=== PATIENT | female | born 1970 | race Caucasian/White ===

== ENCOUNTER 2016-12-21 14:04 | Inpatient (IN) ==
[2016-12-21] MEDS ORDERED: SODIUM CHLORIDE 0.9% 1,000 ML IV STA (14:39)
[2016-12-21] MEDS ORDERED: ONDANSETRON 4 MG/2 ML VIAL IV STA (14:39)
[2016-12-21] MEDS ORDERED: ONDANSETRON 4 MG/2 ML VIAL ONE (14:42)
--- NOTE | 2016-12-21 15:22 | XRay Report ---
XR chest 2V Date: 12/21/2016 2:38 PM History: Cough Comparison: None Technique: PA and lateral chest Findings: The heart is normal in size. Rounded consolidation noted in the right lower lobe with additional minimal infiltration in the right upper lobe. Unremarkable mediastinum and osseous structures. Impression: Right lower lobe and right upper lobe pneumonia. Followup films are recommended to document clearing and exclude additional underlying pathology in the right lower lobe. PROCEDURE INTERPRETED AT [facility] DEPARTMENT OF RADIOLOGY Final Report Signed by: Dr. Adelia Torrez
[2016-12-21 15:26] LABS: Basophils % 0.2 % (0.0-0.8); Eosinophils # 0.1 10*3/uL (0.0-0.87); Eosinophils % 0.7 % (0.00-10.9); Hematocrit 27.5 VOL% (35.7-47.0); Hemoglobin 8.5 GM/DL (12.0-16.0); Immature Granulocytes % 0.7 %; Immature Granulocytes Absolute 0.06 #; Lymphocytes % 23.7 % (21.3-54.2); Mean Corpuscular HGB Conc 30.9 GM/DL (32-36); Mean Corpuscular Hemoglobin 29 PG (27-34); Mean Corpuscular Volume 92.3 FL (87-102); Mean Platelet Volume 9.6 FL (9.6-12.0); Monocytes # 0.6 10*3/uL (0.11-0.8); Monocytes % 6.7 % (1.7-12.7); Neutrophils # 5.7 10*3/uL (1.4-7.4); Platelet Count 376 T/CUMM (130-400); Red Blood Count 2.98 MC/CUMM (3.8-5.5); Red Cell Distribution Width 14.2 % (9.3-17.3); White Blood Count 8.4 T/CUMM (4-12)
[2016-12-21] MEDS ORDERED: cefTRIAXone 1,000 MG in SODIUM CHLORIDE 0.9% 100 ML IV STA (15:36)
[2016-12-21] MEDS ORDERED: AZITHROMYCIN INJ 500 MG in SODIUM CHLORIDE 0.9% 250 ML IV STA (15:37)
[2016-12-21 15:45] LABS: Alanine Aminotransferase 15 U/L (13-56); Albumin 2.7 G/DL (3.4-5.0); Alkaline Phosphatase 106 U/L (45-117); Aspartate Amino Transferase 12 U/L (0-37); Bilirubin,Total < 0.39 MG/DL (0.2-1.0); Blood Urea Nitrogen 32 MG/DL (7-18); Calcium 8.7 MG/DL (8.5-10.1); Glucose 121 MG/DL (74-106); Osmolality,Calculated 293.8 MOS/KG (273-304); Potassium 3.9 MMOL/L (3.5-5.1); Sodium 144 MMOL/L (136-145); Total Protein 8.2 G/DL (6.4-8.3)
[2016-12-21] MEDS ORDERED: AZITHROMYCIN 500 MG VIAL IV ONE (15:57)
[2016-12-21] MEDS ORDERED: cefTRIAXone 1,000 MG VIAL ONE (15:57)
--- NOTE | 2016-12-21 16:12 | Emergency Department Note ---
Jean Paul Pereira Brittany, am scribing for, and in the presence of, Marco Narayan Jr., MD 14:42. Sylvain Pereira Marvin Jr., MD, personally performed the services described in this documentation, ascribed by Stacey Reaves in my presence, and it is both accurate and complete 612 . Arrival - Arrival Chief Complaint: Upper Respiratory Stated Complaint: pneumonia,diarrhea,low h/h ED Nursing Triage Note: States that she was dx with [facility] C/o N/V/D and generalized weakness. Was also sent for evaluation of low H&H. Mode of Arrival: Wheelchair Limitations: No Limitations Source: Patient, RN Notes Reviewed - History of Present Illness HPI Narrative: Patient is a 46 y/o white female presenting to the ED with c/o nausea, vomiting , diarrhea with an onset of a few days. Patient reports that she was seen at [facility] on and was diagnosed with Pneumonia per [employer] Kush and was given an IM shot of Rocephin and put on Levaquin. Patient returned to [facility] today and had labs drawn and was informed that she had a low Hbg and Hct and was instructed by [employer] to come here to the ED. Patient states that for the past few days she has not been able to tolerate any PO intake, including medications. Patient reports also having some night sweats, having to change clothes about two times throughout the night. She notes also having a productive cough with yellow/green phlegm. Patient states that today she has not had any of her medications, noting that last medication taken was Neurontin last night. She reports that this is her fourth time within the past year having Pneumonia. Patient notes a family history of [place] and Lung CA. Patient denies use of tobacco. Patient has no other complaint/pain in the ED. Date of Last Menstrual Period: 11/22/16 Allergies/Adverse Reactions: Allergies Allergy/AdvReac Type Severity Reaction Status Date / Time Amoxicillin AdvReac Unknown/Unable Verified 12/21/16 14:14 to obtain sulfamethoxazole AdvReac Vomiting Verified 12/21/16 14:14 [From Bactrim] trimethoprim [From Bactrim] AdvReac Vomiting Verified 12/21/16 14:14 Home Medications: Home Medications Medication Instructions Recorded Confirmed Type Duloxetine HCl [Duloxetine] 60 mg PO DAILY 12/21/16 12/21/16 History Enalapril Maleate 20 mg PO DAILY 12/21/16 12/21/16 History Gabapentin 300 mg PO TID 12/21/16 12/21/16 History Levofloxacin Tab [Levaquin Tab] 750 mg PO DAILY 12/21/16 12/21/16 History Magnesium Chloride [Mag Delay] 64 mg PO DAILY 12/21/16 12/21/16 History Metformin HCl 1,000 mg PO QAM 12/21/16 12/21/16 History Metformin HCl 500 mg PO QPM 12/21/16 12/21/16 History Norgestimate-Ethinyl Estradiol 1 each PO DAILY 12/21/16 12/21/16 History [Sprintec 28 Day Tablet] Pioglitazone HCl 15 mg PO DAILY 12/21/16 12/21/16 History hydroCHLOROthiazide 12.5 mg PO DAILY 12/21/16 12/21/16 History [Hydrochlorothiazide] methylPREDNISolone DOSEPAK [Medrol 4 mg PO DAILY 12/21/16 12/21/16 History Dosepak] traMADol TAB [Ultram] 50 mg PO Q6H PRN 12/21/16 12/21/16 History Review of System - Review of System 12 point system: reviewed and no additional remarkable complaints except as stated - Review of System Constitutional: Present: night sweats Respiratory: Present: cough Gastrointestinal: Present: nausea, vomiting, diarrhea Medical,Surgical,& Family Hx - Medical History Cardio: History of: Hypertension Neurology: History of: Peripheral Neuropathy Endocrine: History of: Diabetes Mellitus (NIDDM), Dyslipidemia - Social History Smoking Status: Never smoker Frequency of Alcohol Use: None Type of Drug Use: None Exam Physical Examination: General: Well-developed well-nourished, no apparent distress. Head: Normocephalic, atraumatic. Eyes: PERRLA, EOMI. Nose: No obvious acute deformities or discharge. Mouth: No obvious acute injury. Mucous membranes may be a little bit moist Neck: Full range of motion without obvious pain. No midline tender to palpation. Lymphatic: no significant lymphadenopathy noted. Lungs: Clear to auscultation bilaterally, normal and equal air movement bilaterally, no obvious rales or wheezing. No respiratory distress Heart: regular rate and rhythm, no obvious mummers. Abdomen: Soft nontender, nondistended, normal active bowel sounds. Very benign exam Skin: No obivous acute lesions noted Musculoskeletal: No gross deformities. Neurological: No focal findings, cranial nerves II through XII grossly normal. Psychiatric: Appropriate mood.. : Deferred Vital Signs: Vital Signs Temperature 98.2 F 12/21/16 14:21 Pulse Rate 95 H 12/21/16 14:21 Respiratory Rate 20 12/21/16 14:21 Blood Pressure 166/78 12/21/16 14:21 O2 Sat by Pulse Oximetry 100 12/21/16 14:09 Course Course Narrative: Differential diagnosis: Pneumonia, upper respiratory infection, bronchitis, patient says she is anemic - Reevaluation(s) Reevaluation #1: Discussed with hospitalist who will come to the ER and admit this patient. Time: 16:10 Results - Labs CBC & BMP: 12/21/16 14:56 12/21/16 14:56 Lab Results: I have reviewed the patients labs Labs: Laboratory Tests 12/21/16 14:56 WBC 8.4 RBC 2.98 L Hgb 8.5 L Hct 27.5 L MCV 92.3 MCH 29 MCHC 30.9 L RDW 14.2 Plt Count 376 MPV 9.6 Neut % (Auto) 68.0 Lymph % (Auto) 23.7 [place] % (Auto) 6.7 Eos % (Auto) 0.7 Baso % (Auto) 0.2 Neut # (Auto) 5.7 Lymph # (Auto) 2.0 [place] # (Auto) 0.6 Eos # (Auto) 0.1 Baso # (Auto) 0.0 Immature Gran % 0.7 Nucleated RBC % 0.0 Immature Gran # 0.06 Nucleated RBCs # 0.00 Laboratory Tests 12/21/16 14:56 Sodium 144 Potassium 3.9 Chloride 107 Carbon Dioxide 20 L Anion Gap 20.9 H BUN 32 H Creatinine 3.00 H GFR Calculation 15 BUN/Creatinine Ratio 10.00 Glucose 121 H Calculated Osmolality 293.8 Calcium 8.7 Total Bilirubin < 0.39 AST 12 ALT 15 Alkaline Phosphatase 106 Total Protein 8.2 Albumin 2.7 L Globulin 5.5 H Albumin/Globulin Ratio 0.4 L - Diagnostic Findings Procedure: Chest x-ray: report reviewed by me, image reviewed by me (Right lower lobe and right upper lobe pneumonia. Followup films are recommended to document clearing and exlcude additional underlying pathology in the right lower lobe. I personally reviewed this x-ray and agree) Disposition Clinical Impression: Pneumonia, Failure of outpatient treatment, Renal insufficiency, Vomiting, Mild anemia, Diabetes, Hypertension, Peripheral neuropathy, Elevated blood pressure reading Case discussed with: patient Disposition: Still a Patient Condition: Stable Time of Disposition: 16:12
--- NOTE | 2016-12-21 16:58 | Hospitalist History & Physical ---
Assessment and Plan (1) Acute renal failure Status: Acute Assessment and plan: Renal ultrasound aggressive hydration with half-normal saline monitor BMP hold diuretics and luisa Current Visit: Yes (2) Pneumonia Status: Acute Assessment and plan: Rocephin and azithromycin, chest CT to ensure this is pneumonia and not pulmonary mass Current Visit: Yes (3) Diabetes Status: Acute Assessment and plan: Insulin sliding scale hold metformin Current Visit: Yes (4) Hypertension Status: Acute Assessment and plan: Hold LUISA and arb start Coreg 3.125 Current Visit: Yes (5) Peripheral neuropathy Status: Acute Assessment and plan: Continue gabapentin and tramadol Current Visit: Yes History of Present Illness Chief complaint: n/v/d/sob History of present illness: Ms. Pozo is a 46 year old female who is a patient of Dr. Panfilo Gardner's with c /o nausea, vomiting, diarrhea beginning yesterday. Patient has very pressured speech. She reports having pneumonia 4 times. She [facility] on and was diagnosed with Pneumonia and given an IM shot of Rocephin and put on Levaquin. Patient returned to [facility] today because of the nausea vomiting diarrhea. Instructed by B[employer]KE TE[employer] to come here to the ED. Patient states that for the past few days she has not been able to tolerate any PO intake, including medications. She complains of sweating through her clothes at night Home Medications Medication Instructions Recorded Confirmed Type Duloxetine HCl [Duloxetine] 60 mg PO DAILY 12/21/16 12/21/16 History Enalapril Maleate 20 mg PO DAILY 12/21/16 12/21/16 History Gabapentin 300 mg PO TID 12/21/16 12/21/16 History Levofloxacin Tab [Levaquin Tab] 750 mg PO DAILY 12/21/16 12/21/16 History Magnesium Chloride [Mag Delay] 64 mg PO DAILY 12/21/16 12/21/16 History Metformin HCl 1,000 mg PO QAM 12/21/16 12/21/16 History Metformin HCl 500 mg PO QPM 12/21/16 12/21/16 History Norgestimate-Ethinyl Estradiol 1 each PO DAILY 12/21/16 12/21/16 History [Sprintec 28 Day Tablet] Pioglitazone HCl 15 mg PO DAILY 12/21/16 12/21/16 History hydroCHLOROthiazide 12.5 mg PO DAILY 12/21/16 12/21/16 History [Hydrochlorothiazide] methylPREDNISolone DOSEPAK [Medrol 4 mg PO DAILY 12/21/16 12/21/16 History Dosepak] traMADol TAB [Ultram] 50 mg PO Q6H PRN 12/21/16 12/21/16 History Allergies Allergy/AdvReac Type Severity Reaction Status Date / Time Amoxicillin AdvReac Unknown/Unable Verified 12/21/16 14:14 to obtain sulfamethoxazole AdvReac Vomiting Verified 12/21/16 14:14 [From Bactrim] trimethoprim [From Bactrim] AdvReac Vomiting Verified 12/21/16 14:14 Medical,Surgical,& Family Hx - Medical History Cardio: History of: Hypertension Neurology: History of: Peripheral Neuropathy Endocrine: History of: Diabetes Mellitus (NIDDM), Dyslipidemia Respiratory: History of: Respiratory Problems (Reoccurring pneumonia) No history of: COPD Hematology: History of: Anemia - Surgical History Reproductive Surgeries: Surgical HX of;: Section, Gynecologic Surgery ( Cryo) - Family History Family History: Reports;: Family Heart Disease - Social History Smoking Status: Never smoker Frequency of Alcohol Use: None Type of Drug Use: None Marital Status: Lives With:: Spouse Functional capacity: independent ambulation - Constitutional Constitutional: Present: fatigue, fever(s). Absent: headache(s) - EENT Eyes: Absent: blurry vision, diplopia Ears: Absent: decreased hearing, ear discharge Nose, mouth and throat: Present: sore throat. Absent: headache(s) - Cardiovascular Cardiovascular: Present: chest pain at rest, dyspnea. Absent: edema - Respiratory Respiratory: Present: dyspnea, dyspnea on exertion, change in phlegm color - Gastrointestinal Gastrointestinal: Present: diarrhea, nausea, vomiting - Genitourinary Genitourinary: Absent: difficulty urinating, dysuria - Neurological Neurological: Absent: headache(s), syncope - Psychiatric Psychiatric: Present: anxiety, depression - Endocrine Endocrine: Present: cold intolerance, fatigue. Absent: heat intolerance - Hematologic/Lymphatic Hematologic/Lymphatic: Absent: easy bleeding, easy bruising Exam - Constitutional Vitals: Period Temp Pulse Resp BP Sys/Chase Pulse Ox Last 24 Hr 98.2 F-98.2 F 95-95 20-20 166-166/78-78 100 General appearance: normal weight, no acute distress - Head Head exam: Present: normal inspection, normocephalic - Eye Eye exam: Present: EOMI. Absent: scleral icterus Pupils: Present: CORA, normal accommodation - ENT ENT exam: Present: normal exam, normal external ear exam - Neck Neck exam: Present: lymphadenopathy. Absent: thyromegaly - Respiratory Respiratory exam: Present: clear to auscultation bilaterally. Absent: rhonchi, wheezes - Cardiovascular Cardiovascular exam: Present: regular rate and rhythm. Absent: systolic murmur - GI/Abdominal GI/Abdominal exam: Present: normal bowel sounds, soft. Absent: tenderness - Extremities Exam Extremities exam: Present: normal inspection, normal capillary refill - Neurological Exam Neurological exam: Present: alert, oriented X3, CN II-XII intact, reflexes normal. Absent: motor sensory deficit - Psychiatric Psychiatric exam: Present: normal affect, normal mood - Skin Skin exam: Present: normal color, warm Results - Labs CBC & BMP: 12/21/16 14:56 12/21/16 14:56 Lab Results: I have reviewed the past 24 hour labs - Diagnostic Findings Procedure: Chest x-ray: image reviewed by me (Right upper lobe and right lower lobe pneumonia)
[2016-12-21 17:27] LABS: % Iron Saturation 7.7 % (18-50); Ferritin 48.4 ng/ml (8-252)
--- NOTE | 2016-12-21 17:40 | CT Report ---
Exam: CT chest wo con Date: 12/21/2016 4:55 PM Comparison: Chest x-ray 12/21/2016 Indication: Cough, pneumonia, evaluate for mass Technique: Sequential axial scans of the chest were obtained without contrast. Coronal and sagittal 2-D reconstructions were obtained. Total DLP: 207.30 Findings: The heart is normal in size with small cardiac fat pads. Calcified nodes are identified. Limited evaluation of the nodes and vasculature without contrast. No acute findings in the visualized upper abdomen. Minimal degenerative changes are noted. Diffuse parenchymal findings extending from the right hilum to the pleural surface in the right lower lobe with 90 mm area of involvement. Similar 50 mm finding in the right upper lobe. No pleural effusion. Impression: Right lower lobe and right upper lobe pneumonia. Associated atelectasis. Followup is recommended to document clearing and exclude additional underlying pathology especially in the right lower lobe. PROCEDURE INTERPRETED AT [facility] DEPARTMENT OF RADIOLOGY Final Report Signed by: Dr. Adelia Torrez
[2016-12-21] MEDS ORDERED: ACETAMINOPHEN 325 MG TABLET PO PRN (18:08)
[2016-12-21] MEDS ORDERED: ONDANSETRON 4 MG/2 ML VIAL IV PRN (18:08)
[2016-12-21] MEDS ORDERED: traMADol 50 MG TABLET PO PRN (18:08)
[2016-12-21] MEDS ORDERED: GLUCAGON 1 MG VIAL IM PRN (18:08)
[2016-12-21] MEDS ORDERED: AZITHROMYCIN INJ 500 MG in SODIUM CHLORIDE 0.9% 250 ML IV SCH (18:08)
[2016-12-21] MEDS ORDERED: LACTULOSE 20 GM/30 ML UDCUP PO PRN (18:08)
[2016-12-21] MEDS ORDERED: DEXTROSE 50% 25 GM/50 ML VIAL IV PRN (18:08)
[2016-12-21] MEDS ORDERED: ZALEPLON 5 MG CAPSULE PO PRN (18:08)
[2016-12-21 18:24] LABS: Apearance,Urine CLEAR (Clear); Bilirubin,Urine Negative (Negative); Blood, Urine Negative (Negative); Glucose,Urine (UA) Negative (Negative); Ketones,Urine Negative (Negative); Nitrite,Urine Negative (Negative); Protein,Urine 100 MG/DL; RBC,Urine 1 /HPF (0-4); Squamous Epithelial Cell,Urine Occasional /HPF (0-10); Urine Color Straw (Yellow); Urine Specific Gravity 1.012 (1.001-1.035); Urine Urobilinogen < 2.0 EU/DL (0.2-1.0); WBC,Urine <1 /HPF (0-6)
[2016-12-21] MEDS ORDERED: ENOXAPARIN 30 MG/0.3 ML SYRINGE SUBCUT SCH (18:30)
[2016-12-21] MEDS ORDERED: cefTRIAXone 1,000 MG in SODIUM CHLORIDE 0.9% 100 ML IV SCH (18:30)
[2016-12-21 18:38] LABS: Free T4 (Free Thyroxine) 1.14 NG/DL (0.76-1.46); Thyroid Stimulating Hormone 5.16 uIU/ml (0.358-3.74)
--- NOTE | 2016-12-21 19:30 | Ultrasound Report ---
Exam: US renal Bilateral Date: 12/21/2016 6:08 PM Comparison: None Indication: Acute renal failure Technique: Multiple transabdominal real-time scans were obtained of the kidneys. Ultrasound images were captured and stored. Findings: Right kidney measures 108 x 41 x 39 mm. Left kidney measures 94 x 47 x 41 mm. No mass or hydronephrosis. Inhomogeneous echogenicity in the kidneys. Impression: The kidneys are fairly symmetric in size with no masses or hydronephrosis. Minimally inhomogeneous echogenicity which can be seen with medical renal disease. Minimal elongation of the right lobe of the liver. PROCEDURE INTERPRETED AT [facility] DEPARTMENT OF RADIOLOGY Final Report Signed by: Dr. Adelia Torrez
[2016-12-21] MEDS: ALBUTEROL 2.5 MG/3 ML NEB RESP TX SCH (19:32)
[2016-12-21] MEDS: PANTOPRAZOLE 40 MG TABLET PO SCH (22:06)
[2016-12-21] MEDS: GABAPENTIN 300 MG CAPSULE PO SCH (22:06)
[2016-12-21] MEDS: CARVEDILOL 3.125 MG TABLET PO SCH (22:07)
[2016-12-21] MEDS: SODIUM CHLORIDE 0.45% 1,000 ML IV SCH (22:08)
[2016-12-21] MEDS: INSULIN LISPRO 100 UNIT/ML SUBCUT SCH (22:10)
[2016-12-22] MEDS: ALBUTEROL 2.5 MG/3 ML NEB RESP TX SCH ×4 (00:17→19:54)
[2016-12-22 04:02] LABS: Basophils % 0.3 % (0.0-0.8); Eosinophils # 0.1 10*3/uL (0.0-0.87); Eosinophils % 0.7 % (0.00-10.9); Hematocrit 22.3 VOL% (35.7-47.0); Hemoglobin 6.8 GM/DL (12.0-16.0); Immature Granulocytes % 0.6 %; Immature Granulocytes Absolute 0.04 #; Lymphocytes # 1.9 10*3/uL (1.4-4.0); Lymphocytes % 26.6 % (21.3-54.2); Mean Corpuscular HGB Conc 30.5 GM/DL (32-36); Mean Corpuscular Hemoglobin 28 PG (27-34); Mean Corpuscular Volume 92.9 FL (87-102); Mean Platelet Volume 9.6 FL (9.6-12.0); Monocytes # 0.6 10*3/uL (0.11-0.8); Monocytes % 8.3 % (1.7-12.7); Neutrophils # 4.4 10*3/uL (1.4-7.4); Neutrophils % 63.5 % (38.7-73.9); Platelet Count 286 T/CUMM (130-400)
[2016-12-22 04:24] LABS: Calcium 7.5 MG/DL (8.5-10.1); Osmolality,Calculated 294.7 MOS/KG (273-304); Potassium 4.2 MMOL/L (3.5-5.1)
[2016-12-22] MEDS: SODIUM CHLORIDE 0.45% 1,000 ML IV SCH ×3 (06:29→21:58)
[2016-12-22] MEDS ORDERED: FUROSEMIDE 20 MG/2 ML VIAL IV ONE (07:32)
[2016-12-22] MEDS ORDERED: SODIUM CHLORIDE 0.9% 250 ML IV PRN (09:05)
[2016-12-22] MEDS: GABAPENTIN 300 MG CAPSULE PO SCH ×3 (09:51→21:54)
[2016-12-22] MEDS: DULoxetine 30 MG CAPSULE PO SCH (09:51)
[2016-12-22] MEDS: PANTOPRAZOLE 40 MG TABLET PO SCH ×2 (09:51→21:54)
[2016-12-22] MEDS: MAGNESIUM CHLORIDE 64 MG TABLET PO SCH (09:51)
[2016-12-22] MEDS: CARVEDILOL 3.125 MG TABLET PO SCH (09:51)
[2016-12-22] MEDS: INSULIN LISPRO 100 UNIT/ML SUBCUT SCH ×4 (09:52→21:55)
--- NOTE | 2016-12-22 11:03 | Nephrology Consult Note ---
History of Present Illness Chief complaint: renal failure History of present illness: Ms. Pozo is a 46 year old female admitted with right sided pneumonia. She was treated at the [facility] with by mouth Levaquin . She developed nausea vomiting and diarrhea and returned to the ER. She is noted to have renal insufficiency. She denies dysuria hematuria or flank pain. She does not know her baseline renal function Home Medications Medication Instructions Recorded Confirmed Type Duloxetine HCl [Duloxetine] 60 mg PO DAILY 12/21/16 12/21/16 History Enalapril Maleate 20 mg PO DAILY 12/21/16 12/21/16 History Gabapentin 300 mg PO TID 12/21/16 12/21/16 History Levofloxacin Tab [Levaquin Tab] 750 mg PO DAILY 12/21/16 12/21/16 History Magnesium Chloride [Mag Delay] 64 mg PO DAILY 12/21/16 12/21/16 History Metformin HCl 1,000 mg PO QAM 12/21/16 12/21/16 History Metformin HCl 500 mg PO QPM 12/21/16 12/21/16 History Norgestimate-Ethinyl Estradiol 1 each PO DAILY 12/21/16 12/21/16 History [Sprintec 28 Day Tablet] Pioglitazone HCl 15 mg PO DAILY 12/21/16 12/21/16 History hydroCHLOROthiazide 12.5 mg PO DAILY 12/21/16 12/21/16 History [Hydrochlorothiazide] methylPREDNISolone DOSEPAK [Medrol 4 mg PO DAILY 12/21/16 12/21/16 History Dosepak] traMADol TAB [Ultram] 50 mg PO Q6H PRN 12/21/16 12/21/16 History Allergies Allergy/AdvReac Type Severity Reaction Status Date / Time Amoxicillin AdvReac Unknown/Unable Verified 12/21/16 14:14 to obtain sulfamethoxazole AdvReac Vomiting Verified 12/21/16 14:14 [From Bactrim] trimethoprim [From Bactrim] AdvReac Vomiting Verified 12/21/16 14:14 Medical,Surgical,& Family Hx - Medical History Cardio: History of: Hypertension Neurology: History of: Peripheral Neuropathy Endocrine: History of: Diabetes Mellitus (NIDDM), Dyslipidemia Respiratory: History of: Respiratory Problems (Reoccurring pneumonia) No history of: COPD Hematology: History of: Anemia - Surgical History Reproductive Surgeries: Surgical HX of;: Section, Gynecologic Surgery ( Cryo) - Family History Family History: Reports;: Family Heart Disease - Social History Smoking Status: Never smoker Frequency of Alcohol Use: None Type of Drug Use: None Review of Systems 12 point system: reviewed and no additional remarkable complaints except as stated Exam - Vital Signs Vital signs: Period Temp Pulse Resp BP Sys/Chase Pulse Ox Last 24 Hr 97.9 F-98.3 F 74-103 15-25 114-163/66-91 98-100 Exam: Gen.: Alert and oriented x3. ENT: Pupils equal round reactive to light. EOMs intact. Mucous membranes moist. Neck: Supple. No JVD or bruit. Cardiovascular: Regular rate and rhythm. No murmur rub or gallop Lungs: Clear Abdomen: Soft. Nontender. Positive bowel sounds. No organomegaly Extremities: No edema Results - Labs CBC & BMP: 12/22/16 03:14 12/22/16 03:14 Assessment and Plan (1) Acute renal failure Status: Acute Assessment and plan: 46-year-old woman admitted with: * Acute renal insufficiency. Baseline renal function is not known. She is followed by Dr. Gardner. She is clinically volume depleted. Renal function has improved with IV fluid. Agree with holding metformin and LUISA inhibitor * Pneumonia, right upper lobe and right lower lobe * Diabetes mellitus * Hypertension Current Visit: Yes (2) Diabetes Status: Acute Current Visit: Yes (3) Hypertension Status: Acute Current Visit: Yes (4) Peripheral neuropathy Status: Acute Current Visit: Yes (5) Pneumonia Status: Acute Current Visit: Yes
--- NOTE | 2016-12-22 11:20 | Gastrointestinal Consult Note ---
Assessment and Plan - Time spent with patient Time spent with patient: Greater than 30 minutes (1) Anemia Status: Acute Current Visit: Yes (2) Other specified counseling Status: Acute Current Visit: Yes History of Present Illness History of present illness: Ms. Pozo is a 46 year old female Home Medications Medication Instructions Recorded Confirmed Type Duloxetine HCl [Duloxetine] 60 mg PO DAILY 12/21/16 12/21/16 History Enalapril Maleate 20 mg PO DAILY 12/21/16 12/21/16 History Gabapentin 300 mg PO TID 12/21/16 12/21/16 History Levofloxacin Tab [Levaquin Tab] 750 mg PO DAILY 12/21/16 12/21/16 History Magnesium Chloride [Mag Delay] 64 mg PO DAILY 12/21/16 12/21/16 History Metformin HCl 1,000 mg PO QAM 12/21/16 12/21/16 History Metformin HCl 500 mg PO QPM 12/21/16 12/21/16 History Norgestimate-Ethinyl Estradiol 1 each PO DAILY 12/21/16 12/21/16 History [Sprintec 28 Day Tablet] Pioglitazone HCl 15 mg PO DAILY 12/21/16 12/21/16 History hydroCHLOROthiazide 12.5 mg PO DAILY 12/21/16 12/21/16 History [Hydrochlorothiazide] methylPREDNISolone DOSEPAK [Medrol 4 mg PO DAILY 12/21/16 12/21/16 History Dosepak] traMADol TAB [Ultram] 50 mg PO Q6H PRN 12/21/16 12/21/16 History Allergies Allergy/AdvReac Type Severity Reaction Status Date / Time Amoxicillin AdvReac Unknown/Unable Verified 12/21/16 14:14 to obtain sulfamethoxazole AdvReac Vomiting Verified 12/21/16 14:14 [From Bactrim] trimethoprim [From Bactrim] AdvReac Vomiting Verified 12/21/16 14:14 Medical,Surgical,& Family Hx - Medical History Cardio: History of: Hypertension Neurology: History of: Peripheral Neuropathy Endocrine: History of: Diabetes Mellitus (NIDDM), Dyslipidemia Respiratory: History of: Respiratory Problems (Reoccurring pneumonia) No history of: COPD Hematology: History of: Anemia - Surgical History Reproductive Surgeries: Surgical HX of;: Section, Gynecologic Surgery ( Cryo) - Family History Family History: Reports;: Family Heart Disease - Social History Smoking Status: Never smoker Frequency of Alcohol Use: None Type of Drug Use: None Exam - Constitutional Vitals: Period Temp Pulse Resp BP Sys/Chase Pulse Ox Last 24 Hr 97.9 F-98.3 F 74-103 15-25 114-163/66-91 98-100 Results - Labs CBC & BMP: 12/22/16 03:14 12/22/16 03:14 Note Addendum: PLEASE NOTE -- automatic citation of patient information is unavoidable in this electronic note. I have made a reasonable effort to review the information cited , but it is not a part of my evaluation, impression, or recommendation unless specifically discussed in the dictated text that follows. As well, voice recognition software was used in the creation of this clinical note. Reasonable effort was made to identify and correct gross errors. Despite proofreading, errors in kerrick kleaner operator may be present, including nonsense verbiage at times. If you encounter such an error, please contact me at [phone] for discussion and correction. -- Roxanna Chief complaint: anemia History of present illness: this is a new patient, a 46-year-old female seen by consultation for evaluation of anemia with persistently declining blood counts. Patient is admitted to the hospitalist service under the care of Dr. Vidal with a primary diagnosis of pneumonia and acute renal failure. Since her admission, she has demonstrated a precipitous drop in her blood counts with most recent hemoglobin measurement less than 7 g/dL. She reports no overt gastrointestinal bleeding, indeed no gastrointestinal symptoms whatsoever. Prior to her admission she was eating and drinking normally, maintaining her nutrition and hydration, and maintaining a normal baseline bowel pattern. She is unaware of any past history of gastrointestinal bleeding. She is unaware of any past history of peptic ulcer disease. She is unaware of any history of liver disease. She is comfortable at present and tolerating a clear liquid diet. She has not had any bowel movement since her admission to the hospital. Patient denies fever, chills, night sweats, rigors, headache, dizziness, neck pain, visual changes, redness of the eyes, dysphagia, odynophagia, difficulty chewing, chest pain, abdominal pain, weight loss, regurgitation, hematemesis, diarrhea, hematochezia, melena, proctalgia, constipation, change in bowel pattern generally, dysuria, skin changes, temperature regulation issues, flushing, easy bleeding/bruising, musculoskeletal pain, mental status change, numbness/weakness in the extremities, yellowing of the eyes/skin, cutaneous eruptions, allergies to food or drug, family history of gastrointestinal cancer and colon polyps, and other complaints in general. Review of systems: 12 point review of systems was negative except as documented above. Outpatient medications: duloxetine, enalapril, gabapentin, levofloxacin, magnesium chloride, metformin, piaglitizone, hydrochlorothiazide, methylprednisolone, tramadol Inpatient medications: Tylenol, albuterol, azithromycin, Coreg, ceftriaxone, Cymbalta, Neurontin, [place], insulin, lactulose, magnesium chloride, Zofran, Protonix, 1/2NS infusion, ultram, [place] Past Medical History: hypertension, peripheral neuropathy, diabetes, chronic kidney disease, dyslipidemia, pneumonia, anemia Social history: negative tobacco. Negative alcohol Family history: no gastrointestinal cancers Physical examination: Vital Signs: Current vital signs reviewed and documented above. General Appearance: well-appearing. Not acutely ill. Head: Normocephalic. Neck: Palpation of the neck revealed no abnormalities. Eyes: No scleral icterus. No scleral injection. No conjunctival pallor. Oral Cavity: Odor of breath was normal. No drooling was observed. Lips showed no abnormalities. Floor of the mouth showed no abnormalities. Pharynx: Oropharynx was normal. Lungs: Respiration rhythm and depth was normal. Cardiovascular: Heart rate and rhythm were normal. No murmurs were appreciated. Abdomen: abdomen was not distended. Abdominal palpation revealed no tenderness and no hepatosplenomegaly. Ascites was not discovered. Abdominal auscultation revealed positive bowel sounds. Musculoskeletal System: Musculoskeletal system was grossly normal. Neurological: level of consciousness was normal. Speech was normal. Skin: General appearance was normal. Color and pigmentation were normal. No skin lesions. Laboratory: white blood count simply zero, hemoglobin 6.8, hematocrit 22.3, platelets 286, ESR 125, ALT 15, AST 12, 1348, total bilirubin 0.4, alkaline phosphatase 106, albumin 2.7, total protein 8.2 Radiology: CT of the chest from yesterday revealed both right upper lobe and right lower lobe pneumonia. Impressions: 1. Anemia -- the patient has not demonstrated overt gastrointestinal bleeding. It would be uncommon for blood counts to drop to this extent without overt blood in the stool or vomiting of blood. Nonetheless, the patient has not had endoscopic evaluation in the past and it is reasonable to pursue both upper and lower endoscopy to rule out gastrointestinal loss. We will plan upper endoscopy tomorrow followed by colonoscopy on Friday if there is no finding. In the interim, I recommend continued proton pump inhibitor, aggressive volume management, and serial monitoring of blood counts with transfusion as indicated. If no finding in the G.I. tract, we should further pursue the possibility of both non-G.I. blood loss as well as consumptive or destructive anemia. 2. Other specified counseling: The patient was seen for greater than 30 minutes. The patient was counseled for greater than 50% of this time regarding differential diagnosis, likely diagnosis, diagnostic and therapeutic alternatives, risks/benefits/alternatives of medications and procedures, and plan of care generally. The patient expressed understanding and wishes to proceed. Recommendations: -- aggressive volume management -- serial monitoring of blood counts with transfusion as indicated -- continue proton pump inhibitor -- upper endoscopy Friday -- colonoscopy if no finding on upper endoscopy -- evaluate for evidence of consumptive or destructive anemia ends -- thank you for this consultation. Dr. Llanos will assume G.I. care for this patient tomorrow.
--- NOTE | 2016-12-22 14:56 | Hospitalist Progress Note ---
Assessment and Plan (1) Acute renal failure Status: Acute Assessment and plan: Renal ultrasound suggested just more chronic problems but has improved with aggressive hydration Current Visit: Yes (2) Pneumonia Status: Acute Assessment and plan: Continue Rocephin and azithromycin, chest CT confirms pneumonia Current Visit: Yes (3) Diabetes Status: Acute Assessment and plan: Insulin sliding scale hold starting glyburide until after her scope Current Visit: Yes (4) Hypertension Status: Acute Assessment and plan: Hold LUISA and arb increase Coreg to 6.25 Current Visit: Yes (5) Peripheral neuropathy Status: Acute Assessment and plan: Continue gabapentin and tramadol Current Visit: Yes (6) Mild anemia Status: Acute Assessment and plan: Stool for occult blood was negative, hold Lovenox and continue Protonix p.o. twice daily. Will receive 2 units packed cells today and GI feels that she will need an EGD in the morning Current Visit: Yes Hospitalist: Subjective Interval history: Patient is no longer nauseated or vomiting or having diarrhea and really wants something to eat. I will give her a soft diet for now. I will have GI see her as her hemoglobin has dropped. They will probably want her to remain on a clear liquid diet but I will let them decide. Discussed the results of her CT with her. Will stop her DVT prophylaxis Lovenox and put her on SCDs Exam - Constitutional Vitals: Period Temp Pulse Resp BP Sys/Chase Pulse Ox Last 24 Hr 97.9 F-98.3 F 20-103 15-25 114-166/66-92 96-100 Exam: Heart Rate-[RRR] Lungs-[CTAB] GI-[+bs soft, NT] Ext-[no edema] Neuro motor 5 out of 5 alert and oriented 3 General no acute distress Psych rapid speech Results - Labs CBC & BMP: 12/22/16 03:14 12/22/16 03:14 Lab Results: I have reviewed the past 24 hour labs Labs: Blood cultures 2 pending, stool for WBCs negative, stools for C. difficile negative, stool for blood negative - Diagnostic Findings Procedure: CT - chest: report reviewed by me (Confirms pneumonia), Ultrasound: report reviewed by me (No hydronephrosis but suggestive of medical renal disease )
[2016-12-22] MEDS: CARVEDILOL 6.25 MG TABLET PO SCH ×2 (15:35→21:54)
[2016-12-22] MEDS ORDERED: AZITHROMYCIN INJ 500 MG in SODIUM CHLORIDE 0.9% 250 ML IV SCH (16:30)
[2016-12-22] MEDS: cefTRIAXone 1,000 MG in SODIUM CHLORIDE 0.9% 100 ML IV SCH (17:23)
[2016-12-22 18:06] LABS: Hematocrit 29.4 VOL% (35.7-47.0); Hemoglobin 9.1 GM/DL (12.0-16.0)
[2016-12-23] MEDS: ALBUTEROL 2.5 MG/3 ML NEB RESP TX SCH ×2 (00:06→07:03)
[2016-12-23] MEDS: SODIUM CHLORIDE 0.45% 1,000 ML IV SCH ×5 (04:35→23:30)
[2016-12-23 06:44] LABS: Basophils % 0.5 % (0.0-0.8); Eosinophils # 0.1 10*3/uL (0.0-0.87); Eosinophils % 1.8 % (0.00-10.9); Hematocrit 27.6 VOL% (35.7-47.0); Hemoglobin 8.8 GM/DL (12.0-16.0); Immature Granulocytes % 0.7 %; Immature Granulocytes Absolute 0.04 #; Lymphocytes # 1.9 10*3/uL (1.4-4.0); Lymphocytes % 33.6 % (21.3-54.2); Mean Corpuscular HGB Conc 31.9 GM/DL (32-36); Mean Corpuscular Hemoglobin 28 PG (27-34); Mean Corpuscular Volume 87.3 FL (87-102); Mean Platelet Volume 9.6 FL (9.6-12.0); Monocytes # 0.5 10*3/uL (0.11-0.8); Monocytes % 8.1 % (1.7-12.7); Neutrophils # 3.1 10*3/uL (1.4-7.4); Neutrophils % 55.3 % (38.7-73.9); Platelet Count 267 T/CUMM (130-400); Red Blood Count 3.16 MC/CUMM (3.8-5.5); Red Cell Distribution Width 15.9 % (9.3-17.3); White Blood Count 5.6 T/CUMM (4-12)
[2016-12-23 07:04] LABS: Calcium 7.8 MG/DL (8.5-10.1); Osmolality,Calculated 285.1 MOS/KG (273-304); Potassium 4.4 MMOL/L (3.5-5.1)
[2016-12-23] MEDS: INSULIN LISPRO 100 UNIT/ML SUBCUT SCH ×4 (10:02→22:13)
--- NOTE | 2016-12-23 10:30 | Hospitalist Progress Note ---
Assessment and Plan (1) Pneumonia Status: Acute Assessment and plan: 1)recurrent pneumonia- 4 times in last 12 months- relatively asymptomatic at this point. Consult pulmonary- she may need bronch if this is an infiltrate that just hasn't cleared. Also check ESR- 124, YESY, ANCA 2)DM 3)HTN 4)ckd- baseline creatinine is 1.[address] Gardner's clinic notes. He will see her today. creatinine coming down with hydration- probably increased after dehydration from N/V/D. 5)anemia- H&H up after transfusion, EGD today. No sign of bleeding. In the past DR Gardner says she has had iron def anemia, best HCT in his chart is 31. Current Visit: Yes (2) Renal insufficiency Status: Acute Current Visit: Yes (3) Diabetes Status: Acute Current Visit: Yes (4) Hypertension Status: Acute Current Visit: Yes (5) Acute renal failure Status: Acute Current Visit: Yes (6) Anemia Status: Acute Current Visit: Yes Hospitalist: Subjective Interval history: Mrs Pozo is feeling ok today, though she is hungry waiting for her EGD. She has had pneumonia 4 times in the last 12 months, always at right base per patient (we do not have old films to review). She sees Dr Panfilo Gardner for PCP but denies history of renal disease. She has not had any GIB, hematuria, vaginal bleeding. She has always been anemic but never this significantly. No fever, no cough, no shortness of breath. Her primary symptom was pain at her back from the pneumonia she says. She had a chest CT on arrival that confirmed RLL and RUL infiltrate. Exam - Constitutional Vitals: Period Temp Pulse Resp BP Sys/Chase Pulse Ox Last 24 Hr 97.8 F-98.2 F 20-99 16-20 122-166/77-92 96-100 General appearance: normal weight, no acute distress - Head Head exam: Present: normocephalic, atraumatic - Eye Eye exam: Present: EOMI. Absent: scleral icterus - Respiratory Respiratory exam: Present: other (clear throughout without wheezing, decrease breath sounds in right base.) - Cardiovascular Cardiovascular exam: Present: regular rate and rhythm - GI/Abdominal GI/Abdominal exam: Present: normal bowel sounds, soft - Extremities Exam Extremities exam: Absent: edema - Back Exam Back exam: Present: normal inspection. Absent: CVA tenderness (L), CVA tenderness (R) - Neurological Exam Neurological exam: Present: alert, oriented X3 - Skin Skin exam: Present: warm, dry Results - Labs CBC & BMP: 12/23/16 05:56 12/23/16 05:56 Lab Results: I have reviewed the past 24 hour labs
[2016-12-23] MEDS ORDERED: PROPOFOL 200 MG/20 ML VIAL IV ONE (11:48)
[2016-12-23] MEDS ORDERED: LIDOCAINE 2% 5 ML VIAL ONE (11:48)
--- NOTE | 2016-12-23 11:55 | History and Physical Update ---
History and Physical Update - Physical Exam Mental Status: alert and oriented Heart: regular rate and rhythm Lung: clear to auscultation Abdomen: within normal limits Vitals: within normal limits
--- NOTE | 2016-12-23 11:56 | Operative Note ---
Date of procedure: 12/23/16 Pre-op diagnosis: Iron deficiency anemia Procedure: EGD 46-year-old female admitted with pneumonia found to be anemic with iron deficiency now for EGD to further evaluate. Informed consent was obtained with patient. She was sedated with MAC anesthesia per anesthesia protocol. Patient placed in left lateral decubitus position the Olympus flexible video upper endoscope was inserted into the oral cavity under direct vision the esophagus was intubated. Findings: Esophagus-normal proximal mid esophageal mucosa distal esophagus with moderate hiatal hernia no significant esophagitis, varices or Romano's was identified. Stomach-normal insufflation normal mucosa to direct and retroflexed views of the body fundus cardia and antrum the stomach. Pylorus-normal Duodenum-normal for the bulb of the duodenum to the third portion of the duodenum. No AVMs or bloodstained mucosa was identified. The procedure terminated placed our procedure well Postop diagnosis: 1. Essentially normal EGD. No source for GI blood loss identified. Will plan colonoscopy once her acute renal insufficiency has resolved. Continue to monitor for signs of active bleeding consider bleeding scan if ongoing evidence of active bleeding is noted. Anesthesia: MAC Surgeon / Physician: Vlad Llanos Specimens: none sent Condition: stable Disposition: post procedure unit Results - Labs CBC & BMP: 12/23/16 05:56 12/23/16 05:56 Discharge Plan - Discharge Medications No Action Norgestimate-Ethinyl Estradiol [Sprintec 28 Day Tablet] 1 each PO DAILY Metformin HCl 500 mg PO QPM Gabapentin 300 mg PO TID Pioglitazone HCl 15 mg PO DAILY Levofloxacin Tab [Levaquin Tab] 750 mg PO DAILY Duloxetine HCl [Duloxetine] 60 mg PO DAILY traMADol TAB [Ultram] 50 mg PO Q6H PRN PRN Reason: Pain methylPREDNISolone DOSEPAK [Medrol Dosepak] 4 mg PO DAILY Magnesium Chloride [Mag Delay] 64 mg PO DAILY hydroCHLOROthiazide [Hydrochlorothiazide] 12.5 mg PO DAILY Metformin HCl 1,000 mg PO QAM Enalapril Maleate 20 mg PO DAILY - Follow Up or Referral - Forms/Instructions
--- NOTE | 2016-12-23 12:01 | Anesthesia ---
Anesthesia Post OP - Post Ansesthetic Evaluation Patient seen in post op: Yes Resp: within normal limits CV: within normal limits Mental: within normal limits Temp: within normal limits [id number]: within normal limits Nausea and Vomiting: within normal limits Pain: within normal limits
[2016-12-23] MEDS ORDERED: ALBUTEROL/IPRATROPIUM 3 ML NEB RESP TX PRN (12:48)
[2016-12-23] MEDS: ALBUTEROL/IPRATROPIUM 3 ML NEB RESP TX SCH ×2 (13:02→20:11)
[2016-12-23] MEDS: CARVEDILOL 6.25 MG TABLET PO SCH ×2 (13:37→20:21)
[2016-12-23] MEDS: GABAPENTIN 300 MG CAPSULE PO SCH ×3 (13:38→20:21)
[2016-12-23] MEDS: DULoxetine 30 MG CAPSULE PO SCH (13:38)
[2016-12-23] MEDS: MAGNESIUM CHLORIDE 64 MG TABLET PO SCH (13:39)
[2016-12-23] MEDS: AZITHROMYCIN 250 MG TABLET PO SCH (13:39)
[2016-12-23] MEDS: PANTOPRAZOLE 40 MG TABLET PO SCH ×2 (13:39→20:21)
--- NOTE | 2016-12-23 13:42 | Pulmonology Consult Note ---
History of Present Illness Chief complaint: Recurrent pneumonia, RLL and RUL pneumonia History of present illness: Gutierrez Ulrich, ANP-BC, GNP-BC, acting as scribe for Dr. Tommy Hyde Ms. Pozo is a 46 year old white female from [place], [place], who we've been asked to see in pulmonary consultation for evaluation and treatment. The request for consultation was made by Dr. Zaragoza. Her PCP is Dr. Panfilo Gardner. Ms. Pozo was seen today while in the GI lab post EGD. She was alert, oriented , and able to give a concise history. She was admitted with acute nausea and vomiting. She had recently been [facility] and was told she had an acute RLL pneumonia. She was treated at that time with IM Rocephin and oral Levaquin. She states the nausea and vomiting started after her respiratory symptoms. She thinks the Levaquin "made [me] sick". She reports that she has had pneumonia four times during the past calendar year. She states a bacteria was never isolated. On evaluation in the ER, she was noted to be acutely dehydrated with worsened azotemia. The pneumonia was noted on CXR and CT. She was admitted for further evaluation and treatment. Of note, during this admission she had a significant drop in her H&H and required transfusion. She denies increased shortness of breath or MARTINEZ. She has had a productive cough with discolored sputum, but states she is not coughing up much. She reports the sputum is yellow-green. She denies reflux or dysphagia with extensive questioning. She denies cardiac angina or palpitations. There has been no bleeding from any site that she has seen. There have been no changes in her bowel or bladder habits. No TIA symptoms or syncope. All other systems were reviewed and were negative. Allergies: Amoxicillin, Bactrim DS Home medications: See list Past medical history: Chronic renal insufficiency with a baseline creatinine of approximately 1.7. Recurrent pneumonia as above. Iron deficiency anemia. Kidney stone. Hypertension. Peripheral neuropathy. NIDDM. Dyslipidemia. Surgical history: . Gynecologic surgery (cryo). Family history: Positive for heart disease CXR. Done. 12/21/16. Showed RUL and RLL pneumonia. CT of the Chest. Done 12/21/16. Showed RUL and RLL pneumonia with associated atelectasis. Laboratory: White count is 5,600 with 55.3% segs, 33.6% lymphs, and 8.1% monos; H&H 8.8/27.6 with mixed indices; PLT count 267,000; creatinine improved to 2.30 (was 3.0 at admission), BUN 17, NA+ 142, K+ 4.4; LFTs WNL; iron low at 32, iron sat low at 7.7%, TIBC normal at 418; TSH elevated at 5.160 and Free T4 normal at 1.14; urinalysis on 12/21/16 was negative; serum test was negative; Sed Rate 120 (was 125 on 12/21/16). Home Medications Medication Instructions Recorded Confirmed Type Duloxetine HCl [Duloxetine] 60 mg PO DAILY 12/21/16 12/21/16 History Enalapril Maleate 20 mg PO DAILY 12/21/16 12/21/16 History Gabapentin 300 mg PO TID 12/21/16 12/21/16 History Levofloxacin Tab [Levaquin Tab] 750 mg PO DAILY 12/21/16 12/21/16 History Magnesium Chloride [Mag Delay] 64 mg PO DAILY 12/21/16 12/21/16 History Metformin HCl 1,000 mg PO QAM 12/21/16 12/21/16 History Metformin HCl 500 mg PO QPM 12/21/16 12/21/16 History Norgestimate-Ethinyl Estradiol 1 each PO DAILY 12/21/16 12/21/16 History [Sprintec 28 Day Tablet] Pioglitazone HCl 15 mg PO DAILY 12/21/16 12/21/16 History hydroCHLOROthiazide 12.5 mg PO DAILY 12/21/16 12/21/16 History [Hydrochlorothiazide] methylPREDNISolone DOSEPAK [Medrol 4 mg PO DAILY 12/21/16 12/21/16 History Dosepak] traMADol TAB [Ultram] 50 mg PO Q6H PRN 12/21/16 12/21/16 History Allergies Allergy/AdvReac Type Severity Reaction Status Date / Time Amoxicillin AdvReac Unknown/Unable Verified 12/21/16 14:14 to obtain sulfamethoxazole AdvReac Vomiting Verified 12/21/16 14:14 [From Bactrim] trimethoprim [From Bactrim] AdvReac Vomiting Verified 12/21/16 14:14 Exam (Pulmonay) H&P - Constitutional Vitals: Period Temp Pulse Resp BP Sys/Chase Pulse Ox Last 24 Hr 97.8 F-98.2 F 61-91 15-21 122-167/77-104 93-100 Exam: Psych: Oriented x 3; a pleasant and cooperative patient who is a good historian HEENT: Pupils, irises, sclera, conjunctiva, and eyelids are normal. The face is symmetrical without rash or masses. Lips, tongue, buccal mucosa, soft and hard palates, and pharynx are WNL Neck: Symmetrical. Thyroid was not palpated. Lymphatics: No submandibular, cervical, or supraclavicular adenopathy Chest: Symmetrical without appreciable wheeze, rhonchi or rales; expiration is slightly prolonged CV: Regular with a short grade 1/6 systolic ejection murmur at the left sternal border that does not radiate Arterial: Carotids with a good upstroke. There is no bruit. Upper extremity pulses are palpable. Lower extremity pulses are palpable. Venous: Exam of the neck, upper and lower extremities is normal Abd: No appreciable organomegaly, masses, tenderness, or bruit; Bowel sounds are positive x 4; The aorta was not palpated /Rectal: Deferred Extremities: No clubbing, cyanosis, edema, or obvious DVT Skin: No cancerous or infectious lesions of the exposed, examined skin; the perineal area was not examined M/S: No appreciable loss of the normal curvature of the cervical, thoracic, and lumbar spine Neurological: Cranial nerves are intact, Long tract motor function is intact; Sensory exam was not done; gait was not tested. The remainder of the exam was noncontributory. Impression: #1: Acute RLL and RUL pneumonia refractory to OP treatment #2: Recurrent pneumonias by history--note, the patient states "it's always in the right r lung" #3: Acute nausea and vomiting felt likely secondary to oral Levaquin; resolved #4: Chronic azotemia with acute renal failure; improving #5: Acute dehydration secondary to #1 and #3---resolved #6: Hypertension #7: Iron deficiency anemia #8: Peripheral neuropathy #9: Non-insulin dependent diabetes mellitus #10: Dyslipidemia #11: See past history Plan: #1: Agree with present antibiotics #2: Sputum for gram stain, culture, and sensitivity #3: Cold agglutinins #4: Legionella titer #5: Singulair 10mg PO daily #6: Inhalation therapy with Duonebs QID and PRN #7: Mucinex 600mg PO BID #8: See orders We appreciate this consult and will follow along with you Medical,Surgical,& Family Hx - Medical History Cardio: History of: Hypertension Neurology: History of: Peripheral Neuropathy Endocrine: History of: Diabetes Mellitus (NIDDM), Dyslipidemia Respiratory: History of: Respiratory Problems (Reoccurring pneumonia) No history of: COPD Hematology: History of: Anemia - Surgical History Reproductive Surgeries: Surgical HX of;: Section, Gynecologic Surgery ( Cryo) - Family History Family History: Reports;: Family Heart Disease - Social History Smoking Status: Never smoker Frequency of Alcohol Use: None Type of Drug Use: None Results - Labs CBC & BMP: 12/23/16 05:56 12/23/16 05:56
--- NOTE | 2016-12-23 15:01 | Nephrology Consult Note ---
History of Present Illness Chief complaint: Acute on chronic renal failure History of present illness: Ms. Pozo is a 46 year old female with acute on chronic renal failure. She presented with a right lower lobe pneumonia and some right upper lobe infiltrate noted on CT. She also had a significant anemia without any evidence of GI blood loss. She had a similar illness about 2 years ago that was managed into She developed an anemia and had a pneumonia then. She has been diabetic for more than 5 years controlled with oral agents and has a long history of hypertension. Her last creatinine was 1.7 in September 2015 in our office. She has taken Vasotec at home and until this admission was taking metformin and Actos. On exam her chest is clear and her heart without rub or gallop. She has no significant edema. Her creatinine was 3.0 on admission but is now 2.4 and falling with hydration. She has required transfusion. Today she underwent upper endoscopy with no findings of any source of GI bleeding. Colonoscope was planned for later. Pulmonary will be seeing her and possibly considering bronchoscopy. Serologic studies have been drawn looking for an autoimmune process. I think it would be unusual for something like Leonela's to present in this stuttering and very unaggressive fashion. Impression acute superimposed on chronic renal failure. The acute component is likely due to volume depletion #2 anemia #3 pneumonia #4 history of hypertension and diabetes Plan we will continue to follow her renal function has she is hydrated. I think we can slow her IV now. I agree with holding metformin and Vasotec for now. Home Medications Medication Instructions Recorded Confirmed Type Duloxetine HCl [Duloxetine] 60 mg PO DAILY 12/21/16 12/21/16 History Enalapril Maleate 20 mg PO DAILY 12/21/16 12/21/16 History Gabapentin 300 mg PO TID 12/21/16 12/21/16 History Levofloxacin Tab [Levaquin Tab] 750 mg PO DAILY 12/21/16 12/21/16 History Magnesium Chloride [Mag Delay] 64 mg PO DAILY 12/21/16 12/21/16 History Metformin HCl 1,000 mg PO QAM 12/21/16 12/21/16 History Metformin HCl 500 mg PO QPM 12/21/16 12/21/16 History Norgestimate-Ethinyl Estradiol 1 each PO DAILY 12/21/16 12/21/16 History [Sprintec 28 Day Tablet] Pioglitazone HCl 15 mg PO DAILY 12/21/16 12/21/16 History hydroCHLOROthiazide 12.5 mg PO DAILY 12/21/16 12/21/16 History [Hydrochlorothiazide] methylPREDNISolone DOSEPAK [Medrol 4 mg PO DAILY 12/21/16 12/21/16 History Dosepak] traMADol TAB [Ultram] 50 mg PO Q6H PRN 12/21/16 12/21/16 History Allergies Allergy/AdvReac Type Severity Reaction Status Date / Time Amoxicillin AdvReac Unknown/Unable Verified 12/21/16 14:14 to obtain sulfamethoxazole AdvReac Vomiting Verified 12/21/16 14:14 [From Bactrim] trimethoprim [From Bactrim] AdvReac Vomiting Verified 12/21/16 14:14 Medical,Surgical,& Family Hx - Medical History Cardio: History of: Hypertension Neurology: History of: Peripheral Neuropathy Endocrine: History of: Diabetes Mellitus (NIDDM), Dyslipidemia Respiratory: History of: Respiratory Problems (Reoccurring pneumonia) No history of: COPD Hematology: History of: Anemia - Surgical History Reproductive Surgeries: Surgical HX of;: Section, Gynecologic Surgery ( Cryo) - Family History Family History: Reports;: Family Heart Disease - Social History Smoking Status: Never smoker Frequency of Alcohol Use: None Type of Drug Use: None Review of Systems 12 point system: reviewed and no additional remarkable complaints except as stated Exam - Vital Signs Vital signs: Period Temp Pulse Resp BP Sys/Chase Pulse Ox Last 24 Hr 97.6 F-98.2 F 16-91 10-71 122-167/77-104 93-100 - General Appearance General appearance: well-developed, well-nourished, appears started age EENT: ATNC Neck: no JVD, no thyromegaly, no carotid bruit, supple Respiratory: no kyphosis, no scoliosis Cardiology: no murmurs, no rub, no gallops, no edema, regular rate, regular rhythm, normal S1, normal S2 Gastrointestinal: normoactive bowel sounds Integumentary: no rash, warm and dry Neurologic: no focal deficit, no asterixis, alert and oriented x3, reflexes 2+ and symmetric, gait normal, strength 5/5 Musculoskeletal: no deformities, no erythema, no cyanosis, no clubbing Psychiatric: mood/affect appropriate, cooperative Results - Labs CBC & BMP: 12/23/16 05:56 12/23/16 05:56 Assessment and Plan (1) Renal insufficiency Status: Acute Assessment and plan: Acute on chronic likely due to volume depletion. I expect creatinine to continue to fall. Current Visit: Yes (2) Pneumonia Status: Acute Current Visit: Yes (3) Mild anemia Status: Acute Assessment and plan: Colonoscopy to follow. We will check a haptoglobin Current Visit: Yes (4) Peripheral neuropathy Status: Acute Current Visit: Yes (5) Hypertension Status: Acute Current Visit: Yes (6) Diabetes Status: Acute Current Visit: Yes
--- NOTE | 2016-12-23 16:32 | XRay Report ---
XR chest 2V Date: 12/23/2016 4:00 PM History: Pneumonia Comparison: 12/21/2016 Technique: PA and lateral chest Findings: The heart remains normal in size. Persistent somewhat rounded consolidation in the right lower lobe posteriorly. Minimally progressive infiltration in the right upper lobe. The left lung remains clear with unremarkable mediastinum and osseous structures. Impression: Minimally progressive infiltration in the right upper lobe with more stable infiltration posteriorly in the right lower lobe. Continued followup chest x-ray is recommended to document clearing. PROCEDURE INTERPRETED AT [facility] DEPARTMENT OF RADIOLOGY Final Report Signed by: Dr. Adelia Torrez
[2016-12-23] MEDS: cefTRIAXone 1,000 MG in SODIUM CHLORIDE 0.9% 100 ML IV SCH (20:22)
[2016-12-24] MEDS: ALBUTEROL/IPRATROPIUM 3 ML NEB RESP TX SCH ×4 (00:39→20:30)
[2016-12-24 05:25] LABS: Basophils % 0.3 % (0.0-0.8); Eosinophils # 0.1 10*3/uL (0.0-0.87); Eosinophils % 1.5 % (0.00-10.9); Hematocrit 27.4 VOL% (35.7-47.0); Hemoglobin 8.5 GM/DL (12.0-16.0); Immature Granulocytes % 1.5 %; Immature Granulocytes Absolute 0.09 #; Lymphocytes # 1.7 10*3/uL (1.4-4.0); Lymphocytes % 27.8 % (21.3-54.2); Mean Corpuscular Hemoglobin 28 PG (27-34); Mean Corpuscular Volume 90.4 FL (87-102); Mean Platelet Volume 9.1 FL (9.6-12.0); Monocytes # 0.4 10*3/uL (0.11-0.8); Monocytes % 7.1 % (1.7-12.7); Neutrophils # 3.8 10*3/uL (1.4-7.4); Neutrophils % 61.8 % (38.7-73.9); Platelet Count 237 T/CUMM (130-400); Red Blood Count 3.03 MC/CUMM (3.8-5.5); Red Cell Distribution Width 15.7 % (9.3-17.3); White Blood Count 6.1 T/CUMM (4-12)
[2016-12-24 05:52] LABS: Calcium 7.4 MG/DL (8.5-10.1); Potassium 4.6 MMOL/L (3.5-5.1)
--- NOTE | 2016-12-24 09:08 | Gastrointestinal Progress Note ---
<MaralhusseinSavanah Alexys - Last Filed: 12/24/16 09:05> Assessment and Plan (1) Anemia Status: Acute Assessment and plan: 12/24-No findings of source of anemia on EGD. Colonoscopy on hold at present due to elevated creatnine. No reports of overt bleeding. Hgb 8.5. Plan and addendum to follow by Dr llanos. Current Visit: Yes Gastroenterology - PN: Subj Interval history: CC: Anemia Pt is awake, alert, sitting up in bed. States she is feeling better today. She denies any overt bleeding. EGD findings were normal. Creatnine is up a little today at 2.5 from 2.3. Denies any pain, nausea or vomiting. Abdomen is soft, nontender. She has been seen by Dr Gardner for her elevated creatnine. Her baseline in Sep was reported at 1.7. Pulmonary is seeing as well for her pneumonia. ROS: Denies SOB or chest pain Exam (Progress Note) - Constitutional Vitals: Period Temp Pulse Resp BP Sys/Chase Pulse Ox Last 24 Hr 97.6 F-98.6 F 16-86 10-71 136-167/81-104 93-100 General appearance: normal weight, no acute distress - Head Head exam: Present: normal inspection, normocephalic - Eye Eye exam: Present: other (lids and conjunctiva unremarkable). Absent: scleral icterus - ENT ENT exam: Present: normal exam, normal oropharynx - Neck Neck exam: Present: normal inspection - Respiratory Respiratory exam: Present: clear to auscultation bilaterally. Absent: rales, rhonchi, wheezes - Cardiovascular Cardiovascular exam: Present: regular rate and rhythm. Absent: diastolic murmur , JVD, systolic murmur - GI/Abdominal GI/Abdominal exam: Present: normal bowel sounds, soft. Absent: ascites, distended, mass, organomegaly, tenderness - Extremities Exam Extremities exam: Present: normal inspection, full ROM - Back Exam Back exam: Present: normal inspection - Neurological Exam Neurological exam: Present: alert, oriented X3 - Psychiatric Psychiatric exam: Present: normal affect, normal mood - Skin Skin exam: Present: normal color, warm, dry Results - Labs CBC & BMP: 12/24/16 05:12 12/24/16 05:12 Lab Results: I have reviewed the past 24 hour labs <Vlad Llanos - Last Filed: 12/24/16 16:58> Exam (Progress Note) - Constitutional Vitals: Period Temp Pulse Resp BP Sys/Chase Pulse Ox Last 24 Hr 97.9 F-98.6 F 69-78 16-22 136-153/86-93 95-100 Results - Labs CBC & BMP: 12/24/16 05:12 12/24/16 05:12
--- NOTE | 2016-12-24 10:27 | Hospitalist Progress Note ---
Assessment and Plan (1) Pneumonia Status: Acute Assessment and plan: 1)pneumonia- recurrent- Dr Hyde has reviewed films and it has resolved in the past, suggesting aspiration. Bronch in am. 2)DM 3)HTN 4)CKD- creatinine now 2.5- further tests/management per DR Gardner 5)anemia- H&H stable after transfusion. outpatient colonoscopy when these other issues resolved. Current Visit: Yes (2) Renal insufficiency Status: Acute Current Visit: Yes (3) Diabetes Status: Acute Current Visit: Yes (4) Hypertension Status: Acute Current Visit: Yes (5) Acute renal failure Status: Acute Current Visit: Yes (6) Anemia Status: Acute Current Visit: Yes Hospitalist: Subjective Interval history: Mrs Pozo feels well today. Her EGD was negative for a cause of anemia. She denies symptoms from pneumonia. Bronch planned for the am. She will likely be able to go home soon. Exam - Constitutional Vitals: Period Temp Pulse Resp BP Sys/Chase Pulse Ox Last 24 Hr 97.6 F-98.6 F 16-86 10-71 136-167/81-104 93-100 General appearance: normal weight, mild distress - Head Head exam: Present: normocephalic, atraumatic - Eye Eye exam: Present: EOMI. Absent: scleral icterus - Respiratory Respiratory exam: Present: rales (at right base, less prominent than yesterday) - Cardiovascular Cardiovascular exam: Present: regular rate and rhythm - GI/Abdominal GI/Abdominal exam: Present: normal bowel sounds, soft. Absent: tenderness - Extremities Exam Extremities exam: Absent: edema Results - Labs CBC & BMP: 12/24/16 05:12 12/24/16 05:12 Lab Results: I have reviewed the past 24 hour labs
[2016-12-24] MEDS: AZITHROMYCIN 250 MG TABLET PO SCH (11:20)
[2016-12-24] MEDS: CARVEDILOL 6.25 MG TABLET PO SCH ×2 (11:20→22:05)
[2016-12-24] MEDS: DULoxetine 30 MG CAPSULE PO SCH (11:20)
[2016-12-24] MEDS: MAGNESIUM CHLORIDE 64 MG TABLET PO SCH (11:21)
[2016-12-24] MEDS: INSULIN LISPRO 100 UNIT/ML SUBCUT SCH ×4 (11:21→22:06)
[2016-12-24] MEDS: GABAPENTIN 300 MG CAPSULE PO SCH ×3 (11:21→22:05)
[2016-12-24] MEDS: SODIUM CHLORIDE 0.45% IV SCH (11:23)
[2016-12-24] MEDS: SODIUM BICARB IV SCH (11:23)
--- NOTE | 2016-12-24 11:45 | Pulmonology Progress Note ---
Pulmonary - PN: Subj Interval history: This patient's had pneumonia in the right lower lung 4 times in the past approximate one calendar year. This time she has infiltrate in the medial basilar segment of the right lower lung and also has a posterior right upper lung segment infiltrate. She denies using any type of oral petroleum base ointments or drops on her lips or nose. She emphatically denies aspiration. She occasionally has some slight dysphasia. She is not a smoker and she is not exposed to smoke. She did not have asthma as a child. I have questioned this patient every which way I can and is not a clear-cut reason that she has had 4 pneumonias in the same location. I have offered her fiberoptic bronchoscopy and she is more than willing to have this procedure done to her. I have scheduled her for bronchoscopy at 9 AM on 12/25/2016. Physical exam. Psychiatric. Oriented 3 Neurologic. Cranial nerves are intact long track motor functions intact Eyes normal. Face is symmetrical. Lips and tongue appear to be normal. Neck. Symmetrical. No meningismus. No masses. Lymphatics. No submandibular cervical or supraclavicular or epitrochlear adenopathy Chest. Clear. Heart. No gallop Abdomen. Benign. Extremities. Nothing to suggest deep venous thrombophlebitis no edema. Plan. 1. Continue present antibiotics. 2. Fiberoptic bronchoscopy on 12/25/2016 3. Continue present medicines. Should be ready for discharge soon 4. Dr. Valverde and I have discussed the case and coordinating care Exam (Progress Note) - Constitutional Vitals: Period Temp Pulse Resp BP Sys/Chase Pulse Ox Last 24 Hr 97.8 F-98.6 F 16-86 10-71 136-159/81-98 93-100 Results - Labs CBC & BMP: 12/24/16 05:12 12/24/16 05:12
[2016-12-24] MEDS: PANTOPRAZOLE 40 MG TABLET PO SCH ×2 (13:29→22:05)
[2016-12-24 14:10] LABS: Myeloperoxidase Antibody < 0.2 U
--- NOTE | 2016-12-24 17:52 | Nephrology Progress Note ---
Nephrology - PN: Subj Interval history: Ms. Pozo is seen in follow-up of her renal impairment this is acute superimposed on chronic renal impairment. Creatinine is 2.5 and essentially stable. Diabetes but has only been diabetic for approximately 6 years. Her anemia is has been documented to be iron deficiency with a 7% iron saturation. We will give Barbara for IV beginning tomorrow and she will for a total of 1 g replacement. She is to have bronchoscopy tomorrow to evaluate her pneumonia and will probably have colonoscopy later this week. I do not think the renal impairment will be a reason to hold that up. This creatinine is close to her baseline. We will check a urine protein to creatinine ratio if from its greater than about 3-1 renal biopsy may be considered. This would clarify the diagnosis of her renal impairment a bit. Certainly that can be done at a later date Exam (PN)-Nephrology - Vital Signs Vital signs: Period Temp Pulse Resp BP Sys/Chase Pulse Ox Last 24 Hr 97.9 F-98.6 F 69-79 16-22 136-153/86-94 95-100 - Lab 12/24/16 05:12 12/24/16 05:12 Most recent lab results Calcium 7.4 MG/DL (8.5-10.1) L 12/24/16 05:12 Assessment and Plan (1) Renal insufficiency Status: Acute Assessment and plan: Acute on chronic likely due to volume depletion. I expect creatinine to continue to fall. Current Visit: Yes (2) Pneumonia Status: Acute Current Visit: Yes (3) Mild anemia Status: Acute Assessment and plan: Colonoscopy to follow. We will check a haptoglobin Current Visit: Yes (4) Peripheral neuropathy Status: Acute Current Visit: Yes (5) Hypertension Status: Acute Current Visit: Yes (6) Diabetes Status: Acute Current Visit: Yes
[2016-12-24] MEDS: cefTRIAXone 1,000 MG in SODIUM CHLORIDE 0.9% 100 ML IV SCH (22:05)
[2016-12-25] MEDS: ALBUTEROL/IPRATROPIUM 3 ML NEB RESP TX SCH ×4 (00:50→19:22)
[2016-12-25] MEDS: SODIUM BICARB IV SCH (03:03)
[2016-12-25] MEDS: SODIUM CHLORIDE 0.45% IV SCH (03:03)
[2016-12-25 06:49] LABS: Basophils % 0.2 % (0.0-0.8); Eosinophils # 0.2 10*3/uL (0.0-0.87); Eosinophils % 2.6 % (0.00-10.9); Hematocrit 30.2 VOL% (35.7-47.0); Hemoglobin 9.3 GM/DL (12.0-16.0); Immature Granulocytes % 2.6 %; Immature Granulocytes Absolute 0.16 #; Lymphocytes # 1.5 10*3/uL (1.4-4.0); Lymphocytes % 23.7 % (21.3-54.2); Mean Corpuscular HGB Conc 30.8 GM/DL (32-36); Mean Corpuscular Hemoglobin 28 PG (27-34); Mean Corpuscular Volume 90.4 FL (87-102); Mean Platelet Volume 9.4 FL (9.6-12.0); Monocytes # 0.5 10*3/uL (0.11-0.8); Neutrophils # 3.8 10*3/uL (1.4-7.4); Neutrophils % 62.9 % (38.7-73.9); Platelet Count 250 T/CUMM (130-400); Red Blood Count 3.34 MC/CUMM (3.8-5.5); Red Cell Distribution Width 15.7 % (9.3-17.3); White Blood Count 6.1 T/CUMM (4-12)
[2016-12-25 07:04] LABS: Partial Thromboplastin Time 27.8 SECS (0-40)
[2016-12-25 07:21] LABS: Calcium 7.9 MG/DL (8.5-10.1); Osmolality,Calculated 295.6 MOS/KG (273-304); Potassium 4.7 MMOL/L (3.5-5.1)
[2016-12-25] MEDS ORDERED: BENZONATATE 100 MG CAPSULE PO ONE (08:00)
[2016-12-25] MEDS ORDERED: diphenhydrAMINE 50 MG/1 ML VIAL IM ONE (08:00)
[2016-12-25] MEDS ORDERED: MEPERIDINE 50 MG/1 ML VIAL IM ONE (08:00)
[2016-12-25] MEDS: PANTOPRAZOLE 40 MG TABLET PO SCH ×2 (08:08→21:29)
[2016-12-25] MEDS: CARVEDILOL 6.25 MG TABLET PO SCH ×2 (08:08→21:28)
[2016-12-25] MEDS: DULoxetine 30 MG CAPSULE PO SCH (08:08)
[2016-12-25] MEDS ORDERED: MIDAZOLAM 2 MG/2 ML VIAL ONE (08:28)
[2016-12-25] MEDS ORDERED: LIDOCAINE 2% VISCOUS 100 ML BOTTLE SWISH/SPIT ONE (08:30)
[2016-12-25] MEDS ORDERED: LIDOCAINE 4% TOP SOLN 50 ML BOTTLE RESP TX ONE (08:30)
[2016-12-25] MEDS ORDERED: LIDOCAINE 1% 20 ML VIAL MISC INJ ONE (08:30)
[2016-12-25] MEDS ORDERED: EPINEPHrine 1 MG/ML VIAL ET ONE (09:10)
[2016-12-25] MEDS ORDERED: EPINEPHrine 1 MG/ML VIAL ONE (09:43)
[2016-12-25] MEDS ORDERED: IRON SUCROSE 300 MG in SODIUM CHLORIDE 0.9% 100 ML IV ONE (10:00)
--- NOTE | 2016-12-25 10:04 | Gastrointestinal Progress Note ---
<Savanah Moses - Last Filed: 12/25/16 10:02> Assessment and Plan (1) Anemia Status: Acute Assessment and plan: 12/25-Hgb up at 9.3. Post FOB today. Creatnine unchanged. No overt bleeding. Dr Gardner feels safe to proceed for colonoscopy at this point. Clear liquid diet today. Further plan and addendum to follow by Dr Llanos regarding timing of colonoscopy. 12/24-No findings of source of anemia on EGD. Colonoscopy on hold at present due to elevated creatnine. No reports of overt bleeding. Hgb 8.5. Plan and addendum to follow by Dr llanos. Current Visit: Yes Gastroenterology - PN: Subj Interval history: CC: Anemia Pt is seen, still groggy following FOB this morning. She states her breathing is comfortable and denies any SOB. Her creatnine is unchanged at present. Noted that Dr Gardner mentioned she is close to her baseline therefore he feels safe to proceed with colonoscopy when ready. Abdomen is soft, nontender. Hemoglobin is improved at 9.3. ROS: Denies SOB or chest pain Exam (Progress Note) - Constitutional Vitals: Period Temp Pulse Resp BP Sys/Chsae Pulse Ox Last 24 Hr 97.9 F-98.4 F 69-84 11-20 146-199/93-125 93-100 General appearance: normal weight, no acute distress - Head Head exam: Present: normal inspection, normocephalic - Eye Eye exam: Present: other (lids and conjunctiva unremarkable). Absent: scleral icterus - ENT ENT exam: Present: normal exam, normal oropharynx - Neck Neck exam: Present: normal inspection - Respiratory Respiratory exam: Present: clear to auscultation bilaterally. Absent: rales, rhonchi, wheezes - Cardiovascular Cardiovascular exam: Present: regular rate and rhythm. Absent: diastolic murmur , JVD, systolic murmur - GI/Abdominal GI/Abdominal exam: Present: normal bowel sounds, soft. Absent: ascites, distended, mass, organomegaly, tenderness - Extremities Exam Extremities exam: Present: normal inspection, full ROM - Back Exam Back exam: Present: normal inspection - Neurological Exam Neurological exam: Present: alert, oriented X3 - Psychiatric Psychiatric exam: Present: normal affect, normal mood - Skin Skin exam: Present: normal color, warm, dry Results - Labs CBC & BMP: 12/25/16 06:30 12/25/16 06:30 Lab Results: I have reviewed the past 24 hour labs <Vlad Llanos - Last Filed: 12/25/16 23:01> Exam (Progress Note) - Constitutional Vitals: Period Temp Pulse Resp BP Sys/Chase Pulse Ox Last 24 Hr 96.6 F-98.4 F 69-82 11-25 123-199/87-125 93-100 Results - Labs CBC & BMP: 12/25/16 06:30 12/25/16 06:30
--- NOTE | 2016-12-25 10:59 | Event Note ---
Is a 46-year-old white female. She has had right lower lung medial basilar segment pneumonia 4 times in the past year. She is not a smoker. She denies any environmental exposures. She has a cough. She denies aspiration. She is evaluated with fiberoptic bronchoscopy to investigate anatomical reasons that she might have recurrent pneumonia in the same locations for 1 year. The vocal cords were normal. The trachea was normal. The zee was splayed. See photos The left lower lung bronchi showed multiple submucosal purpura and may have been traumatic from coughing but the endobronchial mucosa appeared slightly thickened in the series. This area was washed and specimens were sent for cultures. See photographs The right lower lung the posterior medial and posterior basilar bronchi were partially stenosed with very friable endobronchial tissue that appeared to involve the bifurcation of these 2 bronchi and extending distally in the posterior basilar segment. And with thick tenacious secretions removed from both segments. This required a good bit of lavage. This area of the right lower lung was biopsied was biopsied. Blood easily. Also this area was lavaged repeatedly. Specimens from the right lower lung were sent for cytology , pathology, bacterial studies, AFB studies and fungal studies. The patient tolerated procedure well there were no complications findings were discussed with the. Impression. 1. Recurrent pneumonia right lower lung 4 times in the past year 2. Endobronchial friable tissue in the medial base and posterior basal segments of the right lower lung. Etiology undetermined 3. Splayed zee. Significance undetermined. Note that on CT scan done [address] Vilma Aleman said there was limited evaluation of the left nodes because contrast was not used Plan. 1. Follow-up chest x-ray 2. Check bronchoscopy specimens 3. Appears this patient has something significant going on.
--- NOTE | 2016-12-25 11:26 | Pulmonology Progress Note ---
Pulmonary - PN: Subj Interval history: Gutierrez Ulrich, ANP-BC, GNP-BC, acting as scribe for Dr. Tommy Hyde Mrs. Pozo underwent FOb earlier today by Dr. Hyde. This showed endobronchial friable tissue in the medial base and posterior basal segments of the RLL. The zee was played. Both of these findings were of unknown significance. Please see the FOB note for more information. Biopsies and washes were taken and sent to the lab for testing. We will follow-up these results. Of note, CT scan done was reported as a limited evaluation of the left nodes because it was non- contrasted. At some point she will most likely need a repeat FOB, but not during this admission. Cold agglutinins were negative. Legionella is pending. Medications have been reviewed. We made no changes today. Labs have been reviewed. White count is 6,100 with a normal differential; H&H 9.3/30.2; PLT count 250,000; creatinine 2.50, BUN 25, NA+ 146, K+ 4.7; Ca+ remains low at 7.9; INR 1.0; YESY screen was negative She is being followed from a GI standpoint by Dr. Llanos and a nephrology standpoint by Dr. Gardner. Their notes have been reviewed. Exam (Progress Note) - Constitutional Vitals: Period Temp Pulse Resp BP Sys/Chase Pulse Ox Last 24 Hr 97.9 F-98.4 F 69-84 11-20 146-199/93-125 93-100 Exam: Chest is clear Heart no gallop Abd is nontender and nondistended; BS positive x 4 Ext with nothing to suggest acute DVT Psych oriented x 3, but slightly somnolent secondary to FOB sedation Neuro long tract motor function is intact Plan: Follow-up FOB results when available. Check Vitamin D level. Repeat CXR in the morning. C-scope as per Dr. Llanos. See orders. Results - Labs CBC & BMP: 12/25/16 06:30 12/25/16 06:30
[2016-12-25] MEDS: AZITHROMYCIN 250 MG TABLET PO SCH (11:32)
[2016-12-25] MEDS: MAGNESIUM CHLORIDE 64 MG TABLET PO SCH (11:33)
[2016-12-25] MEDS: GABAPENTIN 300 MG CAPSULE PO SCH ×3 (11:33→21:28)
[2016-12-25] MEDS: INSULIN LISPRO 100 UNIT/ML SUBCUT SCH ×3 (11:34→19:27)
[2016-12-25] MEDS ORDERED: BISACODYL 5 MG TABLET PO ONE (12:00)
--- NOTE | 2016-12-25 13:17 | Hospitalist Progress Note ---
Assessment and Plan (1) Pneumonia Status: Acute Assessment and plan: 1)pneumonia- recurrent- findings at bronch of friable tissue in RLL, biosies taken as well as culture. Unusual. clinically asymptomatic now. 2)DM 3)HTN 4)CKD- creatinine now 2.5- further tests/management per DR Gardner. Remains on IVF with bicarb. I suspect this is her baseline now. No change with IVF. 5)anemia- H&H stable after transfusion. outpatient colonoscopy when these other issues resolved. Current Visit: Yes (2) Renal insufficiency Status: Acute Current Visit: Yes (3) Diabetes Status: Acute Current Visit: Yes (4) Hypertension Status: Acute Current Visit: Yes (5) Acute renal failure Status: Acute Current Visit: Yes (6) Anemia Status: Acute Current Visit: Yes Hospitalist: Subjective Interval history: Ms Pozo is doing well today after bronch. She denies cough or hemoptysis. No shortness of breath. Feels ready to go home. I have spoken with Dr Llanos who is prepared to do EGD tomorrow morning. She is to receive iron today. Exam - Constitutional Vitals: Period Temp Pulse Resp BP Sys/Chase Pulse Ox Last 24 Hr 98.1 F-98.4 F 69-84 11-20 146-199/94-125 93-100 General appearance: normal weight, no acute distress - Eye Eye exam: Present: EOMI. Absent: scleral icterus - Respiratory Respiratory exam: Present: clear to auscultation bilaterally - Cardiovascular Cardiovascular exam: Present: regular rate and rhythm - GI/Abdominal GI/Abdominal exam: Present: normal bowel sounds, soft. Absent: tenderness - Extremities Exam Extremities exam: Absent: edema Results - Labs CBC & BMP: 12/25/16 06:30 12/25/16 06:30
--- NOTE | 2016-12-25 16:05 | Nephrology Progress Note ---
Nephrology - PN: Subj Interval history: Ms. Pozo is seen in follow-up of her chronic renal impairment. Creatinine stable at 2.5 and she is well hydrated. She underwent bronchoscopy today with findings of narrowed bronchus in the area of her pneumonia with specimens being taken from there. She received 3 mg of Venofer today and will repeat that tomorrow. We did tell her that renal biopsy would be a reasonable thing to do given her relatively short exposure to diabetes of only 6 years. She'll have colonoscopy tomorrow per her history and we will plan to ask for the renal biopsy either while here or at a later date. We would like to take advantage of her IV for now and get an adequate dose of IV iron in. 1 g of Venofer should be enough to restore iron stores. Exam (PN)-Nephrology - Vital Signs Vital signs: Period Temp Pulse Resp BP Sys/Chase Pulse Ox Last 24 Hr 96.6 F-98.4 F 69-84 11-22 123-199/87-125 93-100 - Lab 12/25/16 06:30 12/25/16 06:30 Most recent lab results Calcium 7.9 MG/DL (8.5-10.1) L 12/25/16 06:30 Assessment and Plan (1) Renal insufficiency Status: Acute Assessment and plan: Acute on chronic likely due to volume depletion. I expect creatinine to continue to fall. Current Visit: Yes (2) Pneumonia Status: Acute Current Visit: Yes (3) Mild anemia Status: Acute Assessment and plan: Colonoscopy to follow. We will check a haptoglobin Current Visit: Yes (4) Peripheral neuropathy Status: Acute Current Visit: Yes (5) Hypertension Status: Acute Current Visit: Yes (6) Diabetes Status: Acute Current Visit: Yes
[2016-12-25] MEDS ORDERED: POLYETHYLENE GLYCOL POWDER 255 GM BOTTLE PO ONE (18:00)
[2016-12-25] MEDS ORDERED: MAGNESIUM CITRATE 300 ML BOTTLE PO ONE (21:00)
[2016-12-25] MEDS: cefTRIAXone 1,000 MG in SODIUM CHLORIDE 0.9% 100 ML IV SCH (21:29)
[2016-12-26] MEDS: ALBUTEROL/IPRATROPIUM 3 ML NEB RESP TX SCH ×4 (01:17→20:00)
[2016-12-26] MEDS: INSULIN LISPRO 100 UNIT/ML SUBCUT SCH ×5 (02:58→21:29)
[2016-12-26 03:58] LABS: Protein/Creatinine Ratio,Urine 3.1 RATIO
[2016-12-26 06:52] LABS: Basophils % 0.3 % (0.0-0.8); Eosinophils # 0.1 10*3/uL (0.0-0.87); Eosinophils % 0.9 % (0.00-10.9); Hemoglobin 10.4 GM/DL (12.0-16.0); Immature Granulocytes % 2.1 %; Immature Granulocytes Absolute 0.16 #; Lymphocytes # 1.4 10*3/uL (1.4-4.0); Lymphocytes % 19.1 % (21.3-54.2); Mean Corpuscular HGB Conc 31.5 GM/DL (32-36); Mean Corpuscular Hemoglobin 28 PG (27-34); Mean Corpuscular Volume 87.5 FL (87-102); Mean Platelet Volume 9.3 FL (9.6-12.0); Monocytes # 0.5 10*3/uL (0.11-0.8); Monocytes % 6.3 % (1.7-12.7); Neutrophils # 5.3 10*3/uL (1.4-7.4); Neutrophils % 71.3 % (38.7-73.9); Platelet Count 299 T/CUMM (130-400); Red Blood Count 3.77 MC/CUMM (3.8-5.5); Red Cell Distribution Width 15.9 % (9.3-17.3); White Blood Count 7.5 T/CUMM (4-12)
[2016-12-26 07:17] LABS: Calcium 8.2 MG/DL (8.5-10.1); Potassium 4.1 MMOL/L (3.5-5.1)
--- NOTE | 2016-12-26 08:25 | XRay Report ---
XR chest 2V Indication: Post FOB, pneumonia Comparison: Chest x-ray dated December 23, 2016 Technique: Frontal and lateral views of the chest Findings: Cardiac mediastinal silhouette is stable in configuration. Mildly progressed right basilar atelectasis/consolidation consistent with pneumonia. Mildly improved right suprahilar consolidation with minimal residual remaining. There is probable small right pleural fluid. Osseous and surrounding soft tissue structures appear grossly unchanged. IMPRESSION: As above. PROCEDURE INTERPRETED AT [facility] DEPARTMENT OF RADIOLOGY Final Report Signed by: Dr Basil Martin
[2016-12-26] MEDS: AZITHROMYCIN 250 MG TABLET PO SCH (08:27)
[2016-12-26] MEDS: MAGNESIUM CHLORIDE 64 MG TABLET PO SCH (08:27)
[2016-12-26] MEDS: DULoxetine 30 MG CAPSULE PO SCH (08:27)
[2016-12-26] MEDS: CARVEDILOL 6.25 MG TABLET PO SCH ×2 (08:28→21:28)
[2016-12-26] MEDS: GABAPENTIN 300 MG CAPSULE PO SCH ×3 (08:28→21:30)
[2016-12-26] MEDS: PANTOPRAZOLE 40 MG TABLET PO SCH ×2 (08:28→21:30)
[2016-12-26] MEDS ORDERED: LIDOCAINE 1% 5 ML VIAL ONE (10:50)
[2016-12-26] MEDS ORDERED: PROPOFOL 200 MG/20 ML VIAL IV ONE (10:50)
--- NOTE | 2016-12-26 10:53 | Pulmonology Progress Note ---
Pulmonary - PN: Subj Interval history: This patient's had pneumonia in the right lower lung 4 times in the past approximate one calendar year. This time she has infiltrate in the medial basilar segment of the right lower lung and also has a posterior right upper lung segment infiltrate. She denies using any type of oral petroleum base ointments or drops on her lips or nose. She emphatically denies aspiration. She occasionally has some slight dysphasia. She is not a smoker and she is not exposed to smoke. She did not have asthma as a child. I have questioned this patient every which way I can and is not a clear-cut reason that she has had 4 pneumonias in the same location. I have offered her fiberoptic bronchoscopy and she is more than willing to have this procedure done to her. I have scheduled her for bronchoscopy at 9 AM on 12/25/2016. 12/26/2016. Patient's chest x-ray shows a residual right lower lung infiltrate. The right upper lung infiltrate is 95% resolved. Patient was evaluated with fiberoptic bronchoscopy yesterday. Specimens for bacteria fungus and AFB are negative so far. Cytology and pathology are pending. This patient had abnormal bronchoscopy yesterday. The zee was splayed. There was a lesion between the posterior basal medial basilar segments in the right lower lung which was biopsied and washed. CT was done without contrast because of her renal failure and the radiologist was not able to comment about whether or not there was mediastinal adenopathy. I have a phone call in now to see if there is any other way we can evaluate this additionally. This is been discussed with the patient today. Told her I would let her know as soon as we have something with pathology and cytology. Also told her this might not yield the diagnosis and we may end up repeating a bronchoscopy at a later date. In the meantime continue present treatments. Physical exam. Psychiatric. Oriented 3 Neurologic. Cranial nerves are intact long track motor functions intact Eyes normal. Face is symmetrical. Lips and tongue appear to be normal. Neck. Symmetrical. No meningismus. No masses. Lymphatics. No submandibular cervical or supraclavicular or epitrochlear adenopathy Chest. Clear. Heart. No gallop Abdomen. Benign. Extremities. Nothing to suggest deep venous thrombophlebitis no edema. Plan. 1. Continue present antibiotics. 2. Fiberoptic bronchoscopy on 12/25/2016 3. Continue present medicines. Should be ready for discharge soon 4. Dr. Valverde and I have discussed the case and coordinating care 5. 12/26/2016. See my note above. Pathology pending. Possible additional x- rays to evaluate splaying of the carotid Exam (Progress Note) - Constitutional Vitals: Period Temp Pulse Resp BP Sys/Chase Pulse Ox Last 24 Hr 96.6 F-98.7 F 74-84 10-25 123-175/87-97 94-100 Results - Labs CBC & BMP: 12/26/16 06:06 12/26/16 06:06
--- NOTE | 2016-12-26 11:13 | Operative Note ---
Date of procedure: 12/26/16 Pre-op diagnosis: iron deficiency anemia Procedure: Colonoscopy 46-year-old female with iron deficiency anemia now for colonoscopy to further evaluate. Informed consent was obtained patient She was sedated with MAC anesthesia per anesthesia protocol. Patient placed left lateral decubitus position digital exam was normal no rectal masses are felt. The Olympus flexible video colonoscope [place] canal advanced under direct vision level cecum. Findings: Withdrawal time 8 minutes Prep adequate Cecum-normal identified by the ileocecal valve appendiceal orifice. Terminal ileum-normal Ascending colon-normal Transverse colon-normal Descending colon-mild diverticulosis otherwise normal Sigmoid colon-mild diverticulosis otherwise normal Rectum normal to direct and retroflexed views. The procedure was terminated for external procedure well she is discharged recovery in good condition Postop diagnosis: 1. Diverticulosis coli-maintain adequate fiber and fluid intake 2. Iron deficiency anemia no overt source of GI blood loss identified recommend small bowel follow-through as an outpatient to complete iron deficiency workup. Continue iron replacement monitor H&H. 3. Repeat colonoscopy at age 50 for routine colon cancer surveillance. Anesthesia: MAC Surgeon / Physician: Vlad Llanos Estimated blood loss: none Specimens: none sent Condition: stable Disposition: post procedure unit Results - Labs CBC & BMP: 12/26/16 06:06 12/26/16 06:06 Discharge Plan - Discharge Medications No Action Norgestimate-Ethinyl Estradiol [Sprintec 28 Day Tablet] 1 each PO DAILY Metformin HCl 500 mg PO QPM Gabapentin 300 mg PO TID Pioglitazone HCl 15 mg PO DAILY Levofloxacin Tab [Levaquin Tab] 750 mg PO DAILY Duloxetine HCl [Duloxetine] 60 mg PO DAILY traMADol TAB [Ultram] 50 mg PO Q6H PRN PRN Reason: Pain methylPREDNISolone DOSEPAK [Medrol Dosepak] 4 mg PO DAILY Magnesium Chloride [Mag Delay] 64 mg PO DAILY hydroCHLOROthiazide [Hydrochlorothiazide] 12.5 mg PO DAILY Metformin HCl 1,000 mg PO QAM Enalapril Maleate 20 mg PO DAILY - Follow Up or Referral - Forms/Instructions
--- NOTE | 2016-12-26 11:15 | Anesthesia ---
Anesthesia Post OP - Post Ansesthetic Evaluation Patient seen in post op: Yes Resp: within normal limits CV: within normal limits Mental: within normal limits Temp: within normal limits Lsdv-Vw-Owtpayfev: within normal limits Nausea and Vomiting: within normal limits Pain: within normal limits
--- NOTE | 2016-12-26 11:33 | Nephrology Progress Note ---
Nephrology - PN: Subj Interval history: Ms. Pozo is seen in follow-up of her renal impairment and other problems include iron deficiency anemia and pneumonia with bronchial specimens pending. Her creatinine today is 2.4. She has a cane creatinine ratio of 3.1 which represents fairly heavy proteinuria. We discussed these issues with her and I think the best approach is to proceed with a renal biopsy so that we can define her renal pathology. I have discussed potential biopsy with Dr. Willoughby and we'll proceed with that tomorrow. Ms. Pozo understands the rationale for proceeding. Exam (PN)-Nephrology - Vital Signs Vital signs: Period Temp Pulse Resp BP Sys/Chase Pulse Ox Last 24 Hr 96.6 F-98.7 F 74-84 10-25 123-175/70-97 94-100 - Lab 12/26/16 06:06 12/26/16 06:06 Most recent lab results Calcium 8.2 MG/DL (8.5-10.1) L 12/26/16 06:06 Assessment and Plan (1) Renal insufficiency Status: Acute Assessment and plan: Acute on chronic likely due to volume depletion. I expect creatinine to continue to fall. Current Visit: Yes (2) Pneumonia Status: Acute Current Visit: Yes (3) Mild anemia Status: Acute Assessment and plan: Colonoscopy to follow. We will check a haptoglobin Current Visit: Yes (4) Peripheral neuropathy Status: Acute Current Visit: Yes (5) Hypertension Status: Acute Current Visit: Yes (6) Diabetes Status: Acute Current Visit: Yes
--- NOTE | 2016-12-26 11:40 | Pathology Report from [facility] ---
ACCESSION # : [id number] PATIENT NAME : Noemí Pozo ORDERING DR : DANIELLA ADLER MD CLINICAL HX: Right Lower Lobe recurrent Pneumonia. POST-OP DX: Same SPECIMEN INFO: Washing,Bronchial,RLL - 2 containers labeled RLL, combined total 30 ml's bloody, cloudy. CLASS: I CLASS COMMENTS: Benign pulmonary cells, inflammationCELL BLOCK: Same CLASS LEGEND: CLASS 0 Material inadequate for diagnosis because of (see comment) CLASS I Absence of atypical or abnormal cells CLASS II Atypical Cytology but no evidence of malignancy CLASS III Cytology suggestive of but not conclusive for malignancy CLASS IV Cytology strongly suggestive of malignancy CLASS V Cytology conclusive for malignancy SERVICE DATE: 12/25/2016 REPORT DATE: 12/26/2016 PATHOLOGIST: Delores Rod
--- NOTE | 2016-12-26 11:43 | Pathology Report from [facility] ---
ACCESSION # : [id number] PATIENT NAME : Sena Pozo ORDERING DR : DANIELLA ADLER MD CLINICAL HX: recurrent RLL pneumonia POST-OP DX: Same SPECIMEN INFO: Bronchial biopsies x 3 RLL GROSS DESCRIPTION: The specimen is received in formalin labeled with the patient 's name Sena Pozo and 'RLL" consists of fragments of melendez white soft tissue measuring 1 x up to 0.3 cm. Submitted in one cassette. DIAGNOSIS FOR SENA POZO: LUNG, RIGHT LOWER LOBE, ENDOBRONCHIAL BIOPSIES: Benign endobronchial glandular mucosa with moderate acute and chronic inflammation. No tumor or granulomas seen. Alveolar lung tissue not present. SERVICE DATE: 12/25/2016 REPORT DATE: 12/26/2016 PATHOLOGIST: Sammy Lane M.D. [facility]ITAL[facility]
[2016-12-26] MEDS ORDERED: IRON SUCROSE 300 MG in SODIUM CHLORIDE 0.9% 100 ML IV ONE (12:00)
--- NOTE | 2016-12-26 14:16 | Hospitalist Progress Note ---
Assessment and Plan (1) Pneumonia Status: Acute Assessment and plan: 1)pneumonia- recurrent- findings at bronch of friable tissue in RLL, biosies taken as well as culture. Unusual. clinically asymptomatic now. 2)DM 3)HTN 4)CKD- creatinine now 2.5- at her baseline and urinalysis shows sig proteniuria. renal biopsy tomorrow. 5)anemia- H&H stable after transfusion. outpatient colonoscopy when these other issues resolved. Current Visit: Yes (2) Renal insufficiency Status: Acute Current Visit: Yes (3) Diabetes Status: Acute Current Visit: Yes (4) Hypertension Status: Acute Current Visit: Yes (5) Acute renal failure Status: Acute Current Visit: Yes (6) Anemia Status: Acute Current Visit: Yes Hospitalist: Subjective Interval history: Ms Pozo is doing ok today, though she did not rest well while doing colon prep. Cscope was unremarkable. Plans now for renal biopsy tomorrow. Exam - Constitutional Vitals: Period Temp Pulse Resp BP Sys/Chase Pulse Ox Last 24 Hr 97.5 F-98.7 F 74-84 10-25 123-175/70-97 94-100 General appearance: normal weight, no acute distress - Eye Eye exam: Present: EOMI. Absent: scleral icterus - Respiratory Respiratory exam: Present: clear to auscultation bilaterally - Cardiovascular Cardiovascular exam: Present: regular rate and rhythm - GI/Abdominal GI/Abdominal exam: Present: normal bowel sounds, soft. Absent: tenderness - Extremities Exam Extremities exam: Absent: edema Results - Labs CBC & BMP: 12/26/16 06:06 12/26/16 06:06 Lab Results: I have reviewed the past 24 hour labs
--- NOTE | 2016-12-26 15:49 | IR History and Physical Update ---
IR Pre-Procedure - History and Physical H&P was reviewed, the patient examined and there: are no changes in the patients condition since last H&P was completed. Reason for procedure:: 46-year-old female with renal insufficiency and proteinuria. Nephrology requesting percutaneous biopsy of kidney. - Dictation Physical: refer to H&P completed by admitting physician - Physical Exam Vital Signs: Last Vital Signs Temp 97.7 F 12/26/16 12:00 Pulse 84 12/26/16 12:53 Resp 20 12/26/16 14:00 BP 161/94 12/26/16 12:00 Pulse Ox 100 12/26/16 12:53 Mental Status: alert and oriented - Sedation IR anesthesia plan for sedation: none ASA Class: II - Risks Risks: Procedures explained. Risks discussed include, but not limited to, the following:[ Pain, bleeding, hematuria, need for additional procedures] All questions answered. The following alternatives were discussed:[ Continued obscuration ] Risks and benefits discussed with: patient Consent obtained from: patient Assessment and Plan - Time spent with patient Time spent with patient: Less than 30 minutes (1) Acute renal failure Status: Acute Assessment and plan: Assessment: Renal failure, proteinuria Plan: Ultrasound-guided kidney biopsy tomorrow morning. Current Visit: Yes
[2016-12-26] MEDS: cefTRIAXone 1,000 MG in SODIUM CHLORIDE 0.9% 100 ML IV SCH (21:30)
[2016-12-27] MEDS: ALBUTEROL/IPRATROPIUM 3 ML NEB RESP TX SCH ×3 (00:08→13:15)
[2016-12-27] MEDS: SODIUM BICARB IV SCH (01:51)
[2016-12-27] MEDS: SODIUM CHLORIDE 0.45% IV SCH (01:51)
[2016-12-27 06:07] LABS: PT Patient Result 10.3 SECS; Partial Thromboplastin Time 33.6 SECS (0-40)
--- NOTE | 2016-12-27 08:24 | Nephrology Progress Note ---
Nephrology - PN: Subj Interval history: Ms. Pozo is seen in follow-up of her chronic renal failure. She is doing well and will undergo renal biopsy today. Her 6 year history of diabetes may be the etiology of her azotemia and proteinuria with a protein to creatinine ratio 3. Past specimens are pending from the recent transbronchial biopsy and she is afebrile and doing much better. She will receive her last dose of IV iron today and that should have her iron replete. With the upper and lower endoscopy not revealing a cause of bleeding it's likely that she is iron deficient from relatively heavy menstrual periods. We can follow her in our office in 1-2 months and will communicate the results of a renal biopsy. Exam (PN)-Nephrology - Vital Signs Vital signs: Period Temp Pulse Resp BP Sys/Chase Pulse Ox Last 24 Hr 97.5 F-98.1 F 72-84 10-21 100-161/50-96 92-100 - Lab 12/26/16 06:06 12/26/16 06:06 Most recent lab results Calcium 8.2 MG/DL (8.5-10.1) L 12/26/16 06:06 Assessment and Plan (1) Renal insufficiency Status: Acute Assessment and plan: Acute on chronic likely due to volume depletion. I expect creatinine to continue to fall. Current Visit: Yes (2) Pneumonia Status: Acute Current Visit: Yes (3) Mild anemia Status: Acute Assessment and plan: Colonoscopy to follow. We will check a haptoglobin Current Visit: Yes (4) Peripheral neuropathy Status: Acute Current Visit: Yes (5) Hypertension Status: Acute Current Visit: Yes (6) Diabetes Status: Acute Current Visit: Yes
[2016-12-27] MEDS ORDERED: IRON SUCROSE 300 MG in SODIUM CHLORIDE 0.9% 100 ML IV ONE (10:00)
[2016-12-27] MEDS ORDERED: DIAZEPAM 5 MG TABLET PO ONE (10:00)
[2016-12-27] MEDS: DIAZEPAM 5 MG TABLET PO ONE ×2 (10:02→10:05)
--- NOTE | 2016-12-27 10:14 | Gastrointestinal Progress Note ---
<JosuéSavanah Alexys - Last Filed: 12/27/16 10:12> Assessment and Plan (1) Anemia Status: Acute Assessment and plan: 12/27-Hgb improving on last check. No overt GI bleeding. Will schedule pt for outpatient small bowel FT on discharge. Plan and addendum to follow by Dr Llanos. 12/25-Hgb up at 9.3. Post FOB today. Creatnine unchanged. No overt bleeding. Dr Gardner feels safe to proceed for colonoscopy at this point. Clear liquid diet today. Further plan and addendum to follow by Dr Llanos regarding timing of colonoscopy. 12/24-No findings of source of anemia on EGD. Colonoscopy on hold at present due to elevated creatnine. No reports of overt bleeding. Hgb 8.5. Plan and addendum to follow by Dr llanos. Current Visit: Yes Gastroenterology - PN: Subj Interval history: CC; Anemia Pt is seen, awake, alert, sitting up in bed. States she is feeling better today. She states that she is for renal biopsy today and possible discharge home after that. Discussed with her that we will schedule a small bowel follow through as outpatient to complete her GI workup for her anemia. She did bring forth that she has had increasingly heavier and longer cycles over the last several months now passing clots. She has not followed up with Dr Salinas for this, which could be contributing to her anemia. Abdomen is soft, nontender. Tolerating diet. Exam (Progress Note) - Constitutional Vitals: Period Temp Pulse Resp BP Sys/Chase Pulse Ox Last 24 Hr 97.5 F-98.1 F 72-84 16-21 100-161/50-94 92-100 General appearance: normal weight, no acute distress - Head Head exam: Present: normal inspection, normocephalic - Eye Eye exam: Present: other (lids and conjunctiva unremarkable). Absent: scleral icterus - ENT ENT exam: Present: normal exam, normal oropharynx - Neck Neck exam: Present: normal inspection - Respiratory Respiratory exam: Present: clear to auscultation bilaterally. Absent: rales, rhonchi, wheezes - Cardiovascular Cardiovascular exam: Present: regular rate and rhythm. Absent: diastolic murmur , JVD, systolic murmur - GI/Abdominal GI/Abdominal exam: Present: normal bowel sounds, soft. Absent: ascites, distended, mass, organomegaly, tenderness - Extremities Exam Extremities exam: Present: normal inspection, full ROM - Back Exam Back exam: Present: normal inspection - Neurological Exam Neurological exam: Present: alert, oriented X3 - Psychiatric Psychiatric exam: Present: normal affect, normal mood - Skin Skin exam: Present: normal color, warm, dry Results - Labs CBC & BMP: 12/26/16 06:06 12/26/16 06:06 Lab Results: I have reviewed the past 24 hour labs <Vlad Llanos - Last Filed: 12/27/16 12:32> Exam (Progress Note) - Constitutional Vitals: Period Temp Pulse Resp BP Sys/Chase Pulse Ox Last 24 Hr 97.5 F-98.1 F 72-88 16-22 100-165/50-91 92-100 Results - Labs CBC & BMP: 12/26/16 06:06 12/26/16 06:06
--- NOTE | 2016-12-27 10:37 | Post Interventional Procedure ---
Pre-op diagnosis: ARF Post-op diagnosis: same Procedure: US guided right kidney biopsy Radiologist: Billy Willoughby Anesthesia: local Specimens: other (5 x 18 ga cores) Estimated blood loss: none Complications: none Condition: stable Assessment and Plan (1) Acute renal failure Status: Acute Assessment and plan: Assessment: Renal failure, proteinuria Plan: Ultrasound-guided kidney biopsy tomorrow morning. Current Visit: Yes
[2016-12-27] MEDS ORDERED: FLUCONAZOLE 100 MG TABLET PO SCH (11:00)
[2016-12-27] MEDS ORDERED: CHOLECALCIFEROL 1,000 UNIT TABLET PO SCH (11:00)
--- NOTE | 2016-12-27 11:08 | Pulmonology Progress Note ---
Pulmonary - PN: Subj Interval history: This patient's had pneumonia in the right lower lung 4 times in the past approximate one calendar year. This time she has infiltrate in the medial basilar segment of the right lower lung and also has a posterior right upper lung segment infiltrate. She denies using any type of oral petroleum base ointments or drops on her lips or nose. She emphatically denies aspiration. She occasionally has some slight dysphasia. She is not a smoker and she is not exposed to smoke. She did not have asthma as a child. I have questioned this patient every which way I can and is not a clear-cut reason that she has had 4 pneumonias in the same location. I have offered her fiberoptic bronchoscopy and she is more than willing to have this procedure done to her. I have scheduled her for bronchoscopy at 9 AM on 12/25/2016. 12/26/2016. Patient's chest x-ray shows a residual right lower lung infiltrate. The right upper lung infiltrate is 95% resolved. Patient was evaluated with fiberoptic bronchoscopy yesterday. Specimens for bacteria fungus and AFB are negative so far. Cytology and pathology are pending. This patient had abnormal bronchoscopy yesterday. The zee was splayed. There was a lesion between the posterior basal medial basilar segments in the right lower lung which was biopsied and washed. CT was done without contrast because of her renal failure and the radiologist was not able to comment about whether or not there was mediastinal adenopathy. I have a phone call in now to see if there is any other way we can evaluate this additionally. This is been discussed with the patient today. Told her I would let her know as soon as we have something with pathology and cytology. Also told her this might not yield the diagnosis and we may end up repeating a bronchoscopy at a later date. In the meantime continue present treatments. 12/27/2015. On bronchoscopy this patient had a hypertrophied area between the right medial basilar segment in the right posterior basilar segment. This was producing partial obstruction and extended into the subsegmental bronchi. The cytologies were class I. Biopsy showed benign glandular tissue. A few yeast were found. There was no fungus, bacteria, AFB found. This is all been discussed with the patient. Thankfully this is benign. I have told her I want to see her back in the office in 6 weeks and then will repeat bronchoscopy as an outpatient. This area is at risk to her since she is already had 4 pneumonias in that area. Hopefully the recurrent pneumonias were related to sputum retention. I removed a tremendous amount of thick tenacious secretions from beyond the area of obstruction. Hopefully the glandular tissue is related to hypertrophy from chronic infections. She does not have any significant risk factors for lung cancer. Patient for renal biopsy today. When this patient is this discharge I would send her home on prednisone 10 mg daily for 10 days and then 10 mg every other day for 10 doses. Her vitamin D level is low and we have started on vitamin D3 at thousand units daily. I started her on Diflucan 200 mg daily for 7 days. We can stop her Levaquin. I have already scheduled follow-up appointment in 6 weeks with a chest x-ray. Dr. Elizondo is statement distribution clerk this weekend if needed. Physical exam. Psychiatric. Oriented 3 Neurologic. Cranial nerves are intact long track motor functions intact Eyes normal. Face is symmetrical. Lips and tongue appear to be normal. Neck. Symmetrical. No meningismus. No masses. Lymphatics. No submandibular cervical or supraclavicular or epitrochlear adenopathy Chest. Clear. Heart. No gallop Abdomen. Benign. Extremities. Nothing to suggest deep venous thrombophlebitis no edema. Plan. 1. Continue present antibiotics. 2. Fiberoptic bronchoscopy on 12/25/2016 3. Continue present medicines. Should be ready for discharge soon 4. Dr. Valverde and I have discussed the case and coordinating care 5. 12/26/2016. See my note above. Pathology pending. Possible additional x- rays to evaluate splaying of the zee. This was discussed with Dr. Basil Martin . He suggested follow-up CT at a later date 6. 12/27/2016. See my note of this date above. Dr. Garcia available if needed this weekend. Follow-up appointment with me in touch with chest x-ray in 6 weeks. Kidney biopsy today Exam (Progress Note) - Constitutional Vitals: Period Temp Pulse Resp BP Sys/Chase Pulse Ox Last 24 Hr 97.5 F-98.1 F 72-88 16-22 100-165/50-94 92-100 Results - Labs CBC & BMP: 12/26/16 06:06 12/26/16 06:06
[2016-12-27] MEDS: DULoxetine 30 MG CAPSULE PO SCH (11:09)
[2016-12-27] MEDS: CARVEDILOL 6.25 MG TABLET PO SCH (11:10)
[2016-12-27] MEDS: GABAPENTIN 300 MG CAPSULE PO SCH ×2 (11:10→15:22)
[2016-12-27] MEDS: MAGNESIUM CHLORIDE 64 MG TABLET PO SCH (11:10)
[2016-12-27] MEDS: PANTOPRAZOLE 40 MG TABLET PO SCH (11:10)
[2016-12-27] MEDS: INSULIN LISPRO 100 UNIT/ML SUBCUT SCH ×2 (11:11→14:41)
[2016-12-27] MEDS: AZITHROMYCIN 250 MG TABLET PO SCH (11:20)
--- NOTE | 2016-12-27 13:37 | Discharge Summary ---
Hospital Course - Hospital Course Hospital Course: Mrs Pozo came with pneumonia. She has had it 4 times in the [place] in the last year. Clinically it resolved quickly. She had a bronch by Dr Hyde who saw narrowed airways in that area and the biorpsies were benign. SHe will need repeat bronch in future and will see him in clinic with CXR in 6 weeks. She also had incrased creatinine. Dr Gardner evaluated her and this is her new baseline of 2.5. She has had a reanl biopsy, results pending. She also was seen and scoped EGD and CScope by Dr Llanos. No cause for her iron deficiency anemia identified on work up- likely menstrual losses. She will return home today on some new meds for her diabetes and HTN- adjustments were required because of her renal failure. She will be treated for the yeast seen on bronch washings and complete steroid taper. She will see Dr Gardner in clinic in 2 weeks. - Time spent with patient Time with patient DS: Greater than 30 minutes (discharge planning, care coordination, medicine reconciliation, documentation) Diagnosis - Discharge Diagnosis (1) Pneumonia Status: Resolved (2) Renal insufficiency Status: Chronic (3) Diabetes Status: Chronic (4) Hypertension Status: Chronic (5) Acute renal failure Status: Ruled-out (6) Anemia Status: Chronic Specialty Discharge - Follow Up or Referrals Follow up with: Tommy Hyde MD [Physician] - (6 weeks with CXR) Pankaj Gardner MD [Physician] - (2-3 weeks) Your, PCP [Other] (1 week ) Discharge Plan - Discharge Data Disposition: Disch To Home/Self Care Condition at Discharge: Stable Discharge Diet: diabetic diet, heart healthy Activity: resume usual activities as tolerated - Discharge Medications New predniSONE TAB [PredniSONE] 10 mg PO DAILY #15 tablet Carvedilol [Coreg] 6.25 mg PO BID #60 tablet Cholecalciferol [Vitamin D3] 1,000 unit PO DAILY #30 tablet Fluconazole Tab [Diflucan Tab] 100 mg PO DAILY #7 tablet Continue Norgestimate-Ethinyl Estradiol [Sprintec 28 Day Tablet] 1 each PO DAILY Gabapentin 300 mg PO TID Pioglitazone HCl 15 mg PO DAILY Duloxetine HCl [Duloxetine] 60 mg PO DAILY traMADol TAB [Ultram] 50 mg PO Q6H PRN PRN Reason: Pain Magnesium Chloride [Mag Delay] 64 mg PO DAILY Discontinued Metformin HCl 500 mg PO QPM Levofloxacin Tab [Levaquin Tab] 750 mg PO DAILY methylPREDNISolone DOSEPAK [Medrol Dosepak] 4 mg PO DAILY hydroCHLOROthiazide [Hydrochlorothiazide] 12.5 mg PO DAILY Metformin HCl 1,000 mg PO QAM Enalapril Maleate 20 mg PO DAILY - Follow Up or Referral - Forms/Instructions Additional Discharge Instructions: keep a check on your sugars and watch your diet carefully. If your glucose stays over 200, call your doctor for further instructions- you may need additional meds. Exam - Constitutional Vitals: Period Temp Pulse Resp BP Sys/Chase Pulse Ox Last 24 Hr 97.5 F-98.1 F 72-88 16-22 100-165/50-91 92-100 General appearance: normal weight, no acute distress - Head Head exam: Present: normocephalic, atraumatic - Eye Eye exam: Present: EOMI. Absent: scleral icterus - Respiratory Respiratory exam: Present: clear to auscultation bilaterally - Cardiovascular Cardiovascular exam: Present: regular rate and rhythm - GI/Abdominal GI/Abdominal exam: Present: normal bowel sounds, soft. Absent: tenderness - Extremities Exam Extremities exam: Absent: edema Discharge Results Procedures and tests throughout hospitalization: Pending Orders 12/21/16 17:02 Iron, Liver Ts Routine 12/22/16 09:03 Occult Blood, Stool Routine 12/23/16 12:48 Sputum Culture and Gram Stain Routine 12/25/16 08:00 AFB Culture/Smears Stat Bronchial Washings C & Gram St Stat Fungal Culture w/ Prep Stat 12/27/16 04:00 US biopsy renal RT Routine 12/30/16 04:00 XR chest 2V Routine Labs on day of discharge: Labs from last 24 hours 12/27/16 12/27/16 12/27/16 11:37 07:38 05:09 INR 1.0 PT Patient/Control Mix 10.3 Circ Anticoag PTT 33.6 D POC Glucose 100 133 H Legionella pneumophila Ab 12/26/16 12/26/16 12/26/16 19:51 16:18 14:06 INR PT Patient/Control Mix Circ Anticoag PTT POC Glucose 144 H 217 H 131 H Legionella pneumophila Ab 12/23/16 05:56 INR PT Patient/Control Mix Circ Anticoag PTT POC Glucose Legionella pneumophila Ab Negative Preliminary micro results at discharge 12/25/16 08:00 Bronchial Washings Culture - Preliminary Bronchial Washings Yeast DS: Provider Date of admission: 12/21/16 16:48 Primary care physician: . No PCP Attending physician on admission: Poornima Vidal MD Consults: 12/21/16 18:08 Consult to Physician [CONS] Routine Comment: karri heredia pt dehydration elevated cr Consulting Provider: Ramon Mendez Person Notified: Vanessa Date Notified: 12/22/16 Time Notified: 08:31 12/22/16 09:03 Consult to Physician [CONS] Routine Comment: gi bleed Consulting Provider: Vlad Llanos When should Consulting Provider be notified: Now Person Notified: yanira Date Notified: 12/22/16 Time Notified: 10:20 12/23/16 10:05 Consult to Physician [CONS] Routine Comment: Consulting Provider: Tommy Hyde Person Notified: kevin Date Notified: 12/23/16 Time Notified: 10:14 12/26/16 11:38 Consult to Physician [CONS] Routine Comment: Kidney biopsy Friday if possible Consulting Provider: Billy Willoughby Discharging clinician: Kerry Zaragoza MD
--- NOTE | 2016-12-27 13:56 | Ultrasound Report ---
US biopsy renal RT Indication: Chronic renal insufficiency. ULTRASOUND-GUIDED KIDNEY BIOPSY, PARENCHYMA Description: A formal timeout was performed. Sonographic evaluation of both kidneys was performed with the patient placed prone on the exam table. The right kidney was most successful. Maximum sterile barrier technique was used. The right lower back was prepped and draped in sterile fashion. Lidocaine was administered. Under sonographic guidance, a 17-gauge coaxial biopsy needle was advanced into the posterior cortex of the right kidney. A captured sonographic image documents needle position. Through the needle, multiple 18-gauge core biopsies were obtained. Needle was removed. Final ultrasound images showed no evidence of hematoma. Patient tolerated the procedure well. Specimen: 5 x 18 gauge core samples right renal cortex. Impression: Successful kidney biopsy. PROCEDURE INTERPRETED AT [facility] DEPARTMENT OF RADIOLOGY Final Report Signed by: Billy Willoughby M.D.
[2016-12-27 17:29] VITALS: BP 163/98
--- NOTE | 2017-01-01 10:19 | Physician Query Form ---
CLICK EDIT DOCUMENT TO SELECT QUERY ANSWER --> OK --> SIGN Sherrell Samaniego RN, CCDS Certified Clinical Retail Field Merchandiser W) [phone] (f) [phone] [email or web address]: Make your selection(s) from the choices in EACH section by typing an "x" and enter comments in the comment section. Please use your independent medical judgment in providing your response. This request does not imply that any particular answer is desired or expected. CLINICAL INDICATORS: (Providers should not edit this section) The medical record indicates that the patient was admitted with pneumonia, creatinine of 3.00 that decreased to 2.40 on the 9th, GFR of 15 on admission that increased to 20 on the 9th, "Acute renal failure"-"Ruled-out" and the patient had a renal biopsy done. In your clinical opinion can you please clarify the stage of the CKD? Clarify which of the following most accurately represents the patient's renal status: Chronic Kidney Disease Stages Source: National Kidney Disease Foundation ( ) Stage I (eGFR > or = 90) ( ) Stage II (eGFR 60 - 89) (x ) Stage III (eGFR 30 - 59) ( ) Stage IV (eGFR 15 - 29) ( ) Stage V (eGFR < 15 or dialysis) ( ) Other COMMENTS: Use of terms such as suspected, likely, or probable (associated with a specific diagnosis that is being evaluated, monitored, or treated as if it exists) are acceptable and can be restated in the discharge summary if not ruled out. MTDD
--- NOTE | 2017-01-01 10:43 | Pathology Report from [facility] ---
ACCESSION # : [id number] PATIENT NAME : Sena Pozo ORDERING DR : KALPANA MONZON MD CLINICAL HX: Renal failure POST-OP DX: Same SPECIMEN INFO: Renal BX to [facility] GROSS DESCRIPTION: Received labeled "SENA POZO" is a renal biopsy sent to [facility] for evaluation. DIAGNOSIS FOR SENA POZO: The following is the kidney biopsy report from Precious Sevilla MD., [place], [place]:KIDNEY, BIOPSY : Arterionephrosclerosis, moderate to severe. Global glomerulosclerosis (01/26). See attached report.Comment: The biopsy is somewhat limited for evaluation as only two glomeruli are present on light microscopy sections. However, there is no evidence of immune complex-mediated disease or light chain associated disorder identified on immunofluorescence studies. Clinical correlation is recommended. SERVICE DATE: 12/30/2016 REPORT DATE: 01/01/2017 PATHOLOGIST: Delores Rod
== END 2016-12-27 17:32 | disposition home or self-care (01) | DRG 168 ==
LOC: N.ED 14:04 → SUATTDRO 16:48 → N.EDINP 16:48 → N.2E 18:07
PROVIDERS: ADMIT Internal Medicine; ATTEND Internal Medicine

== ENCOUNTER 2017-05-17 00:02 | Inpatient (IN) ==
[2017-05-17] MEDS ORDERED: SODIUM CHLORIDE 0.9% 1,000 ML IV STA (00:23)
[2017-05-17 01:12] LABS: Alanine Aminotransferase 30 U/L (13-56); Albumin 3.6 G/DL (3.4-5.0); Alkaline Phosphatase 67 U/L (45-117); Aspartate Amino Transferase 31 U/L (0-37); Bilirubin,Total < 0.39 MG/DL (0.2-1.0); Blood Urea Nitrogen 42 MG/DL (7-18); Glucose 216 MG/DL (74-106); Potassium 4.6 MMOL/L (3.5-5.1); Sodium 136 MMOL/L (136-145); Total Protein 7.7 G/DL (6.4-8.3); Troponin I Only < 0.015 NG/ML (0.00-0.045)
[2017-05-17 01:18] LABS: Basophils % 0.5 % (0.0-0.8); Eosinophils # 0.2 10*3/uL (0.0-0.87); Eosinophils % 2.6 % (0.00-10.9); Hemoglobin 10.7 GM/DL (12.0-16.0); Immature Granulocytes % 1.4 %; Immature Granulocytes Absolute 0.12 #; Lymphocytes # 2.5 10*3/uL (1.4-4.0); Lymphocytes % 29.8 % (21.3-54.2); Mean Corpuscular HGB Conc 33.4 GM/DL (32-36); Mean Corpuscular Hemoglobin 31 PG (27-34); Mean Corpuscular Volume 93.3 FL (87-102); Monocytes # 0.7 10*3/uL (0.11-0.8); Monocytes % 8.3 % (1.7-12.7); Neutrophils # 4.9 10*3/uL (1.4-7.4); Neutrophils % 57.4 % (38.7-73.9); Platelet Count 295 T/CUMM (130-400); Red Blood Count 3.43 MC/CUMM (3.8-5.5); Red Cell Distribution Width 13.8 % (9.3-17.3); White Blood Count 8.5 T/CUMM (4-12)
--- NOTE | 2017-05-17 01:43 | Emergency Department Note ---
IDiana Emily, am scribing for, and in the presence of, Omayra Fuentes MD 00:29 . Gina Pereira Leanne, MD, personally performed the services described in this documentation, ascribed by Jordana Ortiz in my presence, and it is both accurate and complete . Arrival - Arrival Chief Complaint: Shortness of Breath Stated Complaint: BS 444, short of breath, weak, dizzy, not feeling ED Nursing Triage Note: Patient to triage with c/o SOB and chest tightness along with weakness x 2 days. Patient is a diabetic and sugar was 444 1 hour ORDER CHECKER. Mode of Arrival: Ambulatory Limitations: No Limitations Source: Patient - History of Present Illness HPI Narrative: Pt is a 47 y/o female who came to ED with c/o SOB, weakness and chest tightness that has been ongoing for past 2 days. Pt states sxs worsened tonight while at work, unable to walk down hallway. Pt has associated sxs of BUTLER, in which checked her glucose that was 440. Pt admits to not eating right past few days. PMHx HLD, HTN, neuropathy. Pt states recently taken off metformin and now takes glyburide. She notes she is currently on menstrual cycle. Onset (ago): day(s) Consistency: constant Severity: mild Severity scale (1-10): 2 Quality: aching Date of Last Menstrual Period: currently on cycle Allergies/Adverse Reactions: Allergies Allergy/AdvReac Type Severity Reaction Status Date / Time Amoxicillin AdvReac Unknown/Unable Verified 05/17/17 00:09 to obtain sulfamethoxazole AdvReac Vomiting Verified 05/17/17 00:09 [From Bactrim] trimethoprim [From Bactrim] AdvReac Vomiting Verified 05/17/17 00:09 Home Medications: Home Medications Medication Instructions Recorded Confirmed Type Duloxetine HCl [Duloxetine] 60 mg PO DAILY 12/21/16 05/17/17 History Gabapentin 300 mg PO TID 12/21/16 05/17/17 History Magnesium Chloride [Mag Delay] 64 mg PO DAILY 12/21/16 05/17/17 History Norgestimate-Ethinyl Estradiol 1 each PO DAILY 12/21/16 05/17/17 History [Sprintec 28 Day Tablet] Carvedilol [Coreg] 6.25 mg PO BID #60 tablet 12/27/16 05/17/17 Rx glyBURIDE [Glyburide] 1 tablet PO DAILY 05/17/17 05/17/17 History Review of System - Review of System 12 point system: reviewed and no additional remarkable complaints except as stated - Review of System Constitutional: Present: weakness. Absent: fever Respiratory: Present: respiratory distress (SOB) Cardiovascular: Present: chest pain (tightness, not so much pain), dyspnea on exertion. Absent: syncope Gastrointestinal: Absent: abdominal pain, nausea, vomiting, diarrhea Genitourinary female: Absent: dysuria Musculoskeletal: Absent: arm pain, back pain Skin: Absent: rash Neurological: Present: headache Medical,Surgical,& Family Hx - Medical History Cardio: History of: Hypertension Neurology: History of: Peripheral Neuropathy Endocrine: History of: Diabetes Mellitus (NIDDM), Dyslipidemia Respiratory: History of: Respiratory Problems (Reoccurring pneumonia) No history of: COPD Hematology: History of: Anemia - Surgical History Reproductive Surgeries: Surgical HX of;: Section, Gynecologic Surgery ( Cryo) - Family History Family History: Reports;: Family Heart Disease - Social History Smoking Status: Never smoker Frequency of Alcohol Use: None Type of Drug Use: None Functional capacity: independent ambulation Exam Vital Signs: Vital Signs Temperature 97.4 F L 05/17/17 00:06 Pulse Rate 101 H 05/17/17 00:06 Respiratory Rate 22 05/17/17 00:06 Blood Pressure 147/95 05/17/17 00:06 O2 Sat by Pulse Oximetry 99 05/17/17 00:06 - General General appearance: alert, in no apparent distress - Head Head exam: Present: atraumatic, normocephalic - Eye Eye exam: Present: PERRL, EOMI - ENT ENT exam: Present: mucous membranes moist - Neck Neck exam: Present: full ROM. Absent: tenderness - Chest Chest inspection: Present: symmetric chest wall rise. Absent: tenderness - Respiratory Respiratory exam: Present: normal lung sounds bilaterally. Absent: accessory muscle use, respiratory distress, wheezes - Cardiovascular Cardiovascular exam: Present: regular rate, normal rhythm, normal heart sounds - Abdominal Exam Abdominal exam: Present: soft, normal bowel sounds. Absent: distention, tenderness, guarding, rebound - Extremities Exam Extremities exam: Present: full ROM. Absent: tenderness, pedal edema - Neurological Exam Neurological exam: Present: alert, oriented X3, CN II-XII intact. Absent: motor sensory deficit - Psychiatric Psychiatric exam: Present: normal affect, normal mood - Skin Skin exam: Present: warm, dry Course Course Narrative: evi on lab. similar issue in december. will admit for rehydration and further eval. Results - Labs CBC & BMP: 05/17/17 00:44 05/17/17 00:44 Lab Results: I have reviewed the patients labs - EKG EKG results: interpreted by ERMD, WNL, sinus rhythm, normal axis, normal QRS - Diagnostic Findings Procedure: Chest x-ray: pending (no acute process) Disposition Clinical Impression: Acute kidney failure Case discussed with: patient Disposition: Disch To Home/Self Care Condition: Stable
[2017-05-17] MEDS ORDERED: GLUCAGON 1 MG VIAL IM PRN (01:49)
[2017-05-17] MEDS ORDERED: ACETAMINOPHEN 325 MG TABLET PO PRN (01:49)
[2017-05-17] MEDS ORDERED: BISACODYL 5 MG TABLET PO PRN (01:49)
[2017-05-17] MEDS ORDERED: DEXTROSE 50% 25 GM/50 ML VIAL IV PRN (01:49)
[2017-05-17] MEDS ORDERED: ZALEPLON 5 MG CAPSULE PO PRN (01:49)
[2017-05-17] MEDS ORDERED: ONDANSETRON 4 MG/2 ML VIAL IV PRN (01:49)
--- NOTE | 2017-05-17 01:49 | EKG Report ---
Stationary ECG Study [facility] ER Test Date: 05/17/2017 12:14:29 AM Pat Name: SENA MCKINNON Department: Room: Gender: F Checkerer Hand: : 1970 Requested by: Omayra Fuentes Order Number: [id number] Reading MD: DEDE ORLANDO Intervals Neche Rate: 87 P: 60 UT: 122 QRS: -11 QRSD: 89 T: 57 QT: 362 QTc: 406 Interpretive Statements SINUS RHYTHM Electronically Signed On 05-18-17 12:48:44 CDT by DEDE ORLANDO [email or web address]
--- NOTE | 2017-05-17 02:34 | Hospitalist History & Physical ---
Assessment and Plan (1) Acute kidney failure Status: Acute Assessment and plan: Consult nephrology. Hydrate with IV fluids. Repeat BMP in a.m. Current Visit: Yes Qualifiers: Acute renal failure type: unspecified Qualified Code(s): N17.9 - Acute kidney failure, unspecified (2) Dyspnea on exertion Status: Acute Assessment and plan: Check echo and repeat cardiac enzymes. Current Visit: Yes (3) Diabetes Status: Chronic Current Visit: Yes Qualifiers: Diabetes mellitus type: type 2 Diabetes mellitus complication status: with kidney complications Diabetes mellitus complication detail: with chronic kidney disease Diabetes mellitus rodent exterminator insulin use: without care home use Chronic kidney disease stage: stage 3 (moderate) Qualified Code(s): E11.22 - Type 2 diabetes mellitus with diabetic chronic kidney disease; N18.3 - Chronic kidney disease, stage 3 (moderate) (4) Hypertension Status: Chronic Current Visit: Yes Qualifiers: Hypertension type: essential hypertension Qualified Code(s): I10 - Essential (primary) hypertension (5) Peripheral neuropathy Status: Chronic Current Visit: Yes History of Present Illness Chief complaint: SOB, Weakness History of present illness: Ms. Pozo is a 47 year old female with a history of CKD with baseline creatinine of 2.5 and a history of hypertension that was hospitalized back in December with a diagnosis of pneumonia and anemia. She presents to the emergency department today complaining of a 2-3 day history of not feeling well. She reports loss of appetite and generalized weakness. Today she felt short of breath with minimal exertion and had chest pain and tightness that radiated across her chest. She has had 4 episodes of pneumonia within the last year and has had bronchoscopy by Dr. Shahid showing narrowed airways. She denies any fever or chills. Denies any cough. 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 She reports that her bouts of pneumonia felt like a sharp pain in her chest and that she does not have that same feeling this time. She was found to have an acutely elevated creatinine of 3.6 compared to her baseline crowding of 2.5. She is being admitted to the hospitalist service for further evaluation workup of her AK I on CKD. She does not appear to have an active pneumonia at this time. Her home medications were reviewed and reconciled. There are no apparent nephrotoxic medications. Her home meds were continued and IV fluids started. We will consult Dr. Gardner her primary fresh food manager. Further recommendations depend on her response to therapy. Home Medications Medication Instructions Recorded Confirmed Type Duloxetine HCl [Duloxetine] 60 mg PO DAILY 12/21/16 05/17/17 History Gabapentin 300 mg PO TID 12/21/16 05/17/17 History Magnesium Chloride [Mag Delay] 64 mg PO DAILY 12/21/16 05/17/17 History Norgestimate-Ethinyl Estradiol 1 each PO DAILY 12/21/16 05/17/17 History [Sprintec 28 Day Tablet] Carvedilol [Coreg] 6.25 mg PO BID #60 tablet 12/27/16 05/17/17 Rx glyBURIDE [Glyburide] 1 tablet PO DAILY 05/17/17 05/17/17 History Allergies Allergy/AdvReac Type Severity Reaction Status Date / Time Amoxicillin AdvReac Unknown/Unable Verified 05/17/17 00:09 to obtain sulfamethoxazole AdvReac Vomiting Verified 05/17/17 00:09 [From Bactrim] trimethoprim [From Bactrim] AdvReac Vomiting Verified 05/17/17 00:09 Medical,Surgical,& Family Hx - Medical History Cardio: History of: Hypertension Neurology: History of: Peripheral Neuropathy Endocrine: History of: Diabetes Mellitus (NIDDM), Dyslipidemia Respiratory: History of: Pneumonia (Recurrent), Respiratory Problems ( Reoccurring pneumonia) No history of: COPD Renal: History of: Renal Failure (CKD baseline 2.5) Gastrointestinal: History of: GERD Hematology: History of: Anemia - Surgical History Reproductive Surgeries: Surgical HX of;: Section, Gynecologic Surgery ( Cryo) - Family History Family History: Reports;: Family Cancer, Family Heart Disease - Social History Smoking Status: Never smoker Have you smoked in the last 12 months: No Frequency of Alcohol Use: None Type of Drug Use: None Marital Status: Single Lives With:: Alone Functional capacity: independent ambulation 12 point system: reviewed and no additional remarkable complaints except as stated - Constitutional Constitutional: Absent: fever(s) - Cardiovascular Cardiovascular: Present: as per HPI, dyspnea on exertion. Absent: edema, PND - Respiratory Respiratory: Present: as per HPI, dyspnea on exertion. Absent: cough, wheezing , pain on inspiration Exam - Constitutional Vitals: Period Temp Pulse Resp BP Sys/Chase Pulse Ox Last 24 Hr 97.4 F-97.4 F 101-101 22-22 147-147/95-95 99 Exam: Constitutional System: No distress. No tremulousness. Head: Normocephalic, atraumatic. Ears, Nose and Throat System: No pain or tenderness. No epistaxis or discharge Eyes System: Pupils equal, round, and reactive. Extraocular muscles intact. Neck: Supple, without adenopathy, No jugular venous distention. No thyromegaly, neck mass, or prior surgery apparent. Respiratory System: Chest clear to auscultation. Cardiovascular System: Heart with regular rate and rhythm. No murmur. GI System: Abdomen soft, nontender. Normo active bowel sounds present. Musculoskeletal System: limbs with no pedal edema. Full distal pulses. Neurological System: No discernable sensory deficit. No aphasia Psychiatric System: Conversation is rational Results - Labs CBC & BMP: 05/17/17 00:44 05/17/17 00:44 Lab Results: I have reviewed the past 24 hour labs - Diagnostic Findings Procedure: Chest x-ray: image reviewed by me, report reviewed by me
[2017-05-17] MEDS: SODIUM CHLORIDE 0.9% 1,000 ML IV SCH ×3 (04:59→18:21)
[2017-05-17] MEDS: glyBURIDE 5 MG TABLET PO SCH ×2 (07:27→08:53)
[2017-05-17] MEDS: INSULIN LISPRO 100 UNIT/ML SUBCUT SCH ×4 (07:27→20:59)
[2017-05-17 07:48] LABS: Troponin I Only < 0.015 NG/ML (0.00-0.045)
[2017-05-17 07:55] LABS: Albumin 3.1 G/DL (3.4-5.0); Bilirubin,Total 0.4 MG/DL (0.2-1.0); Calcium 8.3 MG/DL (8.5-10.1); Magnesium 1.9 MG/DL (1.8-2.4); Osmolality,Calculated 288.5 MOS/KG (273-304); Potassium 4.4 MMOL/L (3.5-5.1); Thyroid Stimulating Hormone 1.78 uIU/ml (0.358-3.74); Total Protein 6.6 G/DL (6.4-8.3)
--- NOTE | 2017-05-17 08:22 | Hospitalist Progress Note ---
Assessment and Plan - Time spent with patient Time spent with patient: Less than 30 minutes (1) Acute renal failure Status: Acute Assessment and plan: Patient had acute kidney injury on admission. Several hours of hydration and creatinine has come from 3.6 down to 3.2. Continue hydration and await any further recommendations by nephrology. Current Visit: No (2) Hypertension Status: Chronic Assessment and plan: Blood pressure relatively stable. Continue current regimen. Current Visit: Yes Qualifiers: Hypertension type: essential hypertension Qualified Code(s): I10 - Essential (primary) hypertension (3) Dyspnea on exertion Status: Acute Assessment and plan: She has no complaints of dyspnea at this time. She has improved with IV hydration. Serial cardiac isoenzymes have been negative thus far. Echocardiogram is currently pending. Current Visit: Yes (4) Diabetes Status: Chronic Assessment and plan: Continue to monitor blood sugars. Continue current medical regimen with Accu- Cheks and sliding scale per Current Visit: Yes Qualifiers: Diabetes mellitus type: type 2 Diabetes mellitus complication status: with kidney complications Diabetes mellitus complication detail: with chronic kidney disease Diabetes mellitus terminal supervisor insulin use: without terminal supervisor use Chronic kidney disease stage: stage 3 (moderate) Qualified Code(s): E11.22 - Type 2 diabetes mellitus with diabetic chronic kidney disease; N18.3 - Chronic kidney disease, stage 3 (moderate) Hospitalist: Subjective Interval history: Patient has been seen and examined. Ms. Pozo is a 47-year-old female who was admitted early this morning by Dr. Diamond for acute kidney failure. She states that she has had a poor appetite with decreased intake over the past couple of days but feels better this morning and ate her entire breakfast. Exam - Constitutional Vitals: Period Temp Pulse Resp BP Sys/Chase Pulse Ox Last 24 Hr 97.4 F-97.5 F 93-101 20-22 143-147/86-95 98-99 General appearance: no acute distress - Head Head exam: Present: normocephalic, atraumatic - Eye Eye exam: Present: EOMI Pupils: Present: CORA - ENT ENT exam: Present: normal exam - Neck Neck exam: Present: normal inspection - Respiratory Respiratory exam: Present: clear to auscultation bilaterally - Cardiovascular Cardiovascular exam: Present: regular rate and rhythm - GI/Abdominal GI/Abdominal exam: Present: normal bowel sounds, soft. Absent: tenderness - Extremities Exam Extremities exam: Absent: calf tenderness, edema - Back Exam Back exam: Present: normal inspection - Neurological Exam Neurological exam: Present: alert, oriented X3, CN II-XII intact. Absent: motor sensory deficit - Psychiatric Psychiatric exam: Present: normal affect, normal mood. Absent: agitated, anxious - Skin Skin exam: Present: warm, dry. Absent: erythema, rash Results - Labs CBC & BMP: 05/17/17 00:44 05/17/17 04:55 Lab Results: I have reviewed the past 24 hour labs
[2017-05-17] MEDS: PANTOPRAZOLE 40 MG TABLET PO SCH (08:52)
[2017-05-17] MEDS: MAGNESIUM CHLORIDE 64 MG TABLET PO SCH (08:52)
[2017-05-17] MEDS: CARVEDILOL 6.25 MG TABLET PO SCH ×2 (08:52→20:59)
[2017-05-17] MEDS: DULoxetine 30 MG CAPSULE PO SCH (08:52)
[2017-05-17] MEDS: GABAPENTIN 300 MG CAPSULE PO SCH ×3 (08:52→20:59)
[2017-05-17] MEDS: ENOXAPARIN 30 MG/0.3 ML SYRINGE SUBCUT SCH (08:53)
[2017-05-17] MEDS ORDERED: NORGESTIMATE ETHINYL ESTRADIOL PO SCH (09:00)
--- NOTE | 2017-05-17 09:47 | XRay Report ---
History: Shortness of breath Date: 05/17/2017 Study: Chest x-ray AP portable Comparison exam: December 26, 2016 chest x-ray The cardiomediastinal silhouette and pulmonary vasculature are unremarkable. The lungs and pleural spaces are clear. The osseous structures are unremarkable. Impression: No acute cardiopulmonary process. No adverse interval change compared to the previous study PROCEDURE INTERPRETED AT [facility] DEPARTMENT OF RADIOLOGY Final Report Signed by: Dr. Anaid Myers
--- NOTE | 2017-05-17 11:00 | Nephrology Consult Note ---
History of Present Illness Chief complaint: Acute on chronic renal failure History of present illness: Ms. Pozo is a 47 year old female with chronic renal failure usually with a creatinine of approximately 2.8 who had a renal biopsy earlier this year indicating nephrosclerosis with no evidence of diabetic nephropathy. She comes in feeling weak having found her sugar to be 440 prior to coming to the hospital and had a creatinine of 3.6 which is improved to 3.2 with fluid. She has had recurrent pneumonia but no evidence of pneumonia now. She also has had an anemia that was associated with iron deficiency and received IV iron earlier this year but not a full replacement dose. She is been unable to tolerate full doses of p.o. iron due to constipation. She has diabetic peripheral neuropathy and takes Neurontin for that and does not check her blood sugars at home. On exam she is in no distress and neck without jugular venous distention she is able to lie flat and breathe comfortably. Her chest is clear heart without rub or gallop there is no peripheral edema and her abdomen is soft. Chest x-ray is without infiltrate. Impression chronic renal impairment with acute worsening probably secondary to volume depletion. The etiology of her underlying chronic renal failure is nephrosclerosis by renal biopsy. #2 chronic anemia with a component of iron deficiency and a component due to her renal impairment. #3 diabetes mellitus Plan: We will repeat iron levels to see if she would benefit from IV iron while here #2 follow creatinine which should continue to improve toward baseline #3 continue efforts at blood sugar control. #4 we have tried to impress upon her the importance of checking blood sugars at home. Home Medications Medication Instructions Recorded Confirmed Type Duloxetine HCl [Duloxetine] 60 mg PO DAILY 12/21/16 05/17/17 History Gabapentin 300 mg PO TID 12/21/16 05/17/17 History Magnesium Chloride [Mag Delay] 64 mg PO DAILY 12/21/16 05/17/17 History Norgestimate-Ethinyl Estradiol 1 each PO DAILY 12/21/16 05/17/17 History [Sprintec 28 Day Tablet] Carvedilol [Coreg] 6.25 mg PO BID #60 tablet 12/27/16 05/17/17 Rx Ferrous Sulfate 325 mg PO DAILY 05/17/17 05/17/17 History glyBURIDE [Glyburide] 1 tablet PO DAILY 05/17/17 05/17/17 History Allergies Allergy/AdvReac Type Severity Reaction Status Date / Time Amoxicillin AdvReac Unknown/Unable Verified 05/17/17 00:09 to obtain sulfamethoxazole AdvReac Vomiting Verified 05/17/17 00:09 [From Bactrim] trimethoprim [From Bactrim] AdvReac Vomiting Verified 05/17/17 00:09 Medical,Surgical,& Family Hx - Medical History Cardio: History of: Hypertension Psychological: History of: Depression Neurology: History of: Peripheral Neuropathy Endocrine: History of: Diabetes Mellitus (NIDDM), Dyslipidemia Respiratory: History of: Pneumonia (Recurrent), Respiratory Problems ( Reoccurring pneumonia) No history of: COPD Renal: History of: Renal Failure (CKD baseline 2.5) Gastrointestinal: History of: GERD Hematology: History of: Anemia - Surgical History Reproductive Surgeries: Surgical HX of;: Section, Gynecologic Surgery ( Cryo) - Family History Family History: Reports;: Family Cancer, Family Diabetes, Family Heart Disease - Social History Smoking Status: Never smoker Frequency of Alcohol Use: None Type of Drug Use: None Review of Systems 12 point system: reviewed and no additional remarkable complaints except as stated Exam - Vital Signs Vital signs: Period Temp Pulse Resp BP Sys/Chase Pulse Ox Last 24 Hr 97.4 F-98.7 F 88-101 20-22 143-147/86-95 98-99 - General Appearance General appearance: well-developed, well-nourished, appears started age EENT: ATNC Neck: no JVD, no thyromegaly, no carotid bruit, supple Respiratory: no kyphosis, no scoliosis Cardiology: no murmurs, no rub, no gallops, no edema, regular rate, regular rhythm, normal S1, normal S2 Gastrointestinal: normoactive bowel sounds Integumentary: no rash, warm and dry Neurologic: no focal deficit, no asterixis, alert and oriented x3, reflexes 2+ and symmetric, gait normal, strength 5/5 Musculoskeletal: no deformities, no erythema, no cyanosis, no clubbing Results - Labs CBC & BMP: 05/17/17 00:44 05/17/17 04:55 Assessment and Plan - Time spent with patient Time spent with patient: Greater than 30 minutes (1) Acute on chronic renal failure Status: Acute Assessment and plan: Acute component due to volume depletion. Chronic component due to nephrosclerosis. Continue IV fluid. Current Visit: Yes (2) Mild anemia Status: Acute Assessment and plan: Rechecking iron levels. Current Visit: No (3) Diabetes Status: Chronic Assessment and plan: Sliding scale insulin and continued glyburide. Current Visit: Yes Qualifiers: Diabetes mellitus type: type 2 Diabetes mellitus complication status: with kidney complications Diabetes mellitus complication detail: with chronic kidney disease Diabetes mellitus mcfp insulin use: without mcfp use Chronic kidney disease stage: stage 3 (moderate) Qualified Code(s): E11.22 - Type 2 diabetes mellitus with diabetic chronic kidney disease; N18.3 - Chronic kidney disease, stage 3 (moderate) (4) Peripheral neuropathy Status: Chronic Assessment and plan: Continue Neurontin Current Visit: Yes Specialty Discharge - Follow Up or Referrals - Speciality Discharge Instructions Nephrology Instructions: We will continue IV fluids at a slower rate and follow renal function
[2017-05-17 13:04] LABS: % Iron Saturation 15.6 % (18-50)
[2017-05-17] MEDS ORDERED: IRON SUCROSE 200 MG in SODIUM CHLORIDE 0.9% 100 ML IV SCH (17:26)
[2017-05-17] MEDS ORDERED: IRON SUCROSE 200 MG in SODIUM CHLORIDE 0.9% 100 ML IV ONE (17:47)
[2017-05-18 03:32] LABS: Basophils % 0.1 % (0.0-0.8); Eosinophils # 0.3 10*3/uL (0.0-0.87); Eosinophils % 4.1 % (0.00-10.9); Hematocrit 25.4 VOL% (35.7-47.0); Hemoglobin 8.6 GM/DL (12.0-16.0); Immature Granulocytes % 1.9 %; Immature Granulocytes Absolute 0.13 #; Lymphocytes # 2.2 10*3/uL (1.4-4.0); Lymphocytes % 32.6 % (21.3-54.2); Mean Corpuscular HGB Conc 33.9 GM/DL (32-36); Mean Corpuscular Hemoglobin 32 PG (27-34); Mean Corpuscular Volume 94.8 FL (87-102); Mean Platelet Volume 9.6 FL (9.6-12.0); Monocytes # 0.7 10*3/uL (0.11-0.8); Monocytes % 9.9 % (1.7-12.7); Neutrophils # 3.5 10*3/uL (1.4-7.4); Neutrophils % 51.4 % (38.7-73.9); Platelet Count 226 T/CUMM (130-400); Red Blood Count 2.68 MC/CUMM (3.8-5.5); Red Cell Distribution Width 13.2 % (9.3-17.3); White Blood Count 6.9 T/CUMM (4-12)
[2017-05-18] MEDS: SODIUM CHLORIDE 0.9% 1,000 ML IV SCH ×2 (03:56→15:14)
[2017-05-18 04:28] LABS: Calcium 7.4 MG/DL (8.5-10.1); Osmolality,Calculated 288.4 MOS/KG (273-304); Potassium 4.4 MMOL/L (3.5-5.1)
[2017-05-18] MEDS: INSULIN LISPRO 100 UNIT/ML SUBCUT SCH ×4 (07:20→20:54)
[2017-05-18] MEDS ORDERED: IRON SUCROSE 200 MG in SODIUM CHLORIDE 0.9% 100 ML IV SCH (09:00)
[2017-05-18] MEDS: GABAPENTIN 300 MG CAPSULE PO SCH (09:20)
[2017-05-18] MEDS: PANTOPRAZOLE 40 MG TABLET PO SCH (09:21)
[2017-05-18] MEDS: MAGNESIUM CHLORIDE 64 MG TABLET PO SCH (09:21)
[2017-05-18] MEDS: glyBURIDE 5 MG TABLET PO SCH (09:21)
[2017-05-18] MEDS: CARVEDILOL 6.25 MG TABLET PO SCH ×2 (09:22→20:41)
[2017-05-18] MEDS: DULoxetine 30 MG CAPSULE PO SCH (09:22)
[2017-05-18] MEDS: ENOXAPARIN 30 MG/0.3 ML SYRINGE SUBCUT SCH (09:23)
--- NOTE | 2017-05-18 09:57 | Nephrology Progress Note ---
Nephrology - PN: Subj Interval history: Ms. Pozo has improved with a falling serum creatinine now approaching baseline. Her creatinine today is 2.8 and her hematocrit is 25.4 after hydration. She is receiving intravenous iron doses and I think that will be of benefit given her iron deficiency. Will check a B12 level though thinks that that would be an unlikely contributor. She does have nephrosclerosis by renal biopsy. Her anemia is far out of proportion to what it should be for this level of kidney dysfunction and the iron deficiency is a contributor to that. She is feeling well and likely can go home tomorrow. We have encouraged her to stay until tomorrow and get a bit more IV fluids for hydration and another dose of IV iron tomorrow. Exam (PN)-Nephrology - Vital Signs Vital signs: Period Temp Pulse Resp BP Sys/Chase Pulse Ox Last 24 Hr 97.0 F-98.4 F 81-86 12-18 142-178/84-96 95-98 - Lab 05/18/17 03:13 05/18/17 03:13 Most recent lab results Calcium 7.4 MG/DL (8.5-10.1) L 05/18/17 03:13 Magnesium 1.9 MG/DL (1.8-2.4) 05/17/17 04:55 Assessment and Plan (1) Acute on chronic renal failure Status: Acute Assessment and plan: Acute component due to volume depletion. Chronic component due to nephrosclerosis. Continue IV fluid. Current Visit: Yes (2) Mild anemia Status: Acute Assessment and plan: Rechecking iron levels. Current Visit: No (3) Diabetes Status: Chronic Assessment and plan: Sliding scale insulin and continued glyburide. Current Visit: Yes Qualifiers: Diabetes mellitus type: type 2 Diabetes mellitus complication status: with kidney complications Diabetes mellitus complication detail: with chronic kidney disease Diabetes mellitus intermediate frame tender insulin use: without intermediate frame tender use Chronic kidney disease stage: stage 3 (moderate) Qualified Code(s): E11.22 - Type 2 diabetes mellitus with diabetic chronic kidney disease; N18.3 - Chronic kidney disease, stage 3 (moderate) (4) Peripheral neuropathy Status: Chronic Assessment and plan: Continue Neurontin Current Visit: Yes
--- NOTE | 2017-05-18 10:20 | Hospitalist Progress Note ---
Assessment and Plan - Time spent with patient Time spent with patient: Less than 30 minutes (1) Acute renal failure Status: Acute Assessment and plan: Patient had acute kidney injury on admission. Several hours of hydration and creatinine has come from 3.6 down to 3.2. Continue hydration and await any further recommendations by nephrology. 05/18/17: Creatinine improved to 2.8 today. Continuing hydration as well as IV iron today with plans for discharge tomorrow morning. Current Visit: No (2) Hypertension Status: Chronic Assessment and plan: Blood pressure relatively stable. Continue current regimen. Current Visit: Yes Qualifiers: Hypertension type: essential hypertension Qualified Code(s): I10 - Essential (primary) hypertension (3) Dyspnea on exertion Status: Resolved Assessment and plan: She has no complaints of dyspnea at this time. She has improved with IV hydration. Serial cardiac isoenzymes have been negative thus far. Echocardiogram is currently pending. Current Visit: Yes (4) Diabetes Status: Chronic Assessment and plan: Continue to monitor blood sugars. Continue current medical regimen with Accu- Cheks and sliding scale per Current Visit: Yes Qualifiers: Diabetes mellitus type: type 2 Diabetes mellitus complication status: with kidney complications Diabetes mellitus complication detail: with chronic kidney disease Diabetes mellitus senior living insulin use: without rn long term care use Chronic kidney disease stage: stage 3 (moderate) Qualified Code(s): E11.22 - Type 2 diabetes mellitus with diabetic chronic kidney disease; N18.3 - Chronic kidney disease, stage 3 (moderate) Hospitalist: Subjective Interval history: No new complaints today. She is tolerating her diet well she is having no chest pain, shortness breath, nausea, vomiting. She has been seen by Dr. Gardner today and his plans are noted. Exam - Constitutional Vitals: Period Temp Pulse Resp BP Sys/Chase Pulse Ox Last 24 Hr 97.0 F-98.4 F 81-86 12-18 142-178/84-96 95-98 General appearance: no acute distress - Head Head exam: Present: normocephalic, atraumatic - Eye Eye exam: Present: EOMI Pupils: Present: CORA - ENT ENT exam: Present: normal exam - Neck Neck exam: Present: normal inspection - Respiratory Respiratory exam: Present: clear to auscultation bilaterally - Cardiovascular Cardiovascular exam: Present: regular rate and rhythm - GI/Abdominal GI/Abdominal exam: Present: normal bowel sounds, soft. Absent: mass, tenderness , rebound - Extremities Exam Extremities exam: Absent: calf tenderness, edema - Back Exam Back exam: Present: normal inspection - Neurological Exam Neurological exam: Present: alert, oriented X3, CN II-XII intact. Absent: motor sensory deficit - Psychiatric Psychiatric exam: Present: normal affect, normal mood. Absent: agitated, anxious - Skin Skin exam: Present: warm, dry. Absent: rash Results - Labs CBC & BMP: 05/18/17 03:13 05/18/17 03:13 Lab Results: I have reviewed the past 24 hour labs
[2017-05-18] MEDS ORDERED: hydrALAZINE 20 MG/1 ML VIAL IV PRN (12:48)
[2017-05-18] MEDS: amLODIPine 10 MG TABLET PO SCH (13:26)
[2017-05-18] MEDS ORDERED: GABAPENTIN 300 MG CAPSULE PO SCH ×2 (15:00→21:00)
[2017-05-18] MEDS: CYANOCOBALAMIN 1000 MCG/1 ML VIAL IM SCH (17:39)
[2017-05-19] MEDS: SODIUM CHLORIDE 0.9% 1,000 ML IV SCH ×2 (01:46→09:11)
[2017-05-19 05:23] LABS: Hematocrit 24.2 VOL% (35.7-47.0)
[2017-05-19 05:44] LABS: Hemoglobin 7.9 GM/DL (12.0-16.0)
[2017-05-19 05:59] LABS: Calcium 7.6 MG/DL (8.5-10.1); Osmolality,Calculated 287.4 MOS/KG (273-304); Potassium 4.7 MMOL/L (3.5-5.1)
[2017-05-19] MEDS ORDERED: IRON SUCROSE 200 MG in SODIUM CHLORIDE 0.9% 100 ML IV ONE (06:00)
--- NOTE | 2017-05-19 07:46 | Discharge Summary ---
Hospital Course - Hospital Course Hospital Course: 47-year-old white female with a history of chronic kidney disease with baseline creatinine of approximately 2.5. She also has hypertension and diabetes mellitus. She presented complaining of 2-3 day history of not feeling well with some loss of appetite and generalized weakness with poor p.o. intake. She had minimal shortness of breath with exertion and some tightness across her chest. She was admitted because of elevated creatinine of approximately 3.6. She was hydrated and her creatinine improved to 2.8 during her stay. She did have a drop in her H&H with hydration however her symptomatology improved and she had no further chest pain or shortness of breath. Serial cardiac biomarkers were negative. TSH was within normal limits. Her LUISA inhibition was discontinued on admission and she had Norvasc added to her regimen for blood pressure control. She did receive iron infusion during her stay to help with her anemia under the guidance of Dr. Gardner. She was also noted to have B12 deficiency and received B12 1000 mcg IM on 2 consecutive days. Today she is asymptomatic tolerating her diet, hemodynamically stable and it is felt that she has reached maximal benefit from hospital stay and can be discharged home with outpatient follow-up. - Time spent with patient Time with patient DS: Less than 30 minutes Diagnosis - Discharge Diagnosis (1) Acute on chronic renal failure Status: Acute (2) Hypertension Status: Chronic (3) Dyspnea on exertion Status: Resolved (4) Diabetes Status: Chronic (5) Anemia Status: Chronic (6) B12 deficiency Status: Acute Discharge Plan - Discharge Data Disposition: Disch To Home/Self Care Condition at Discharge: Stable Discharge Diet: advance to your usual diet Activity: resume usual activities as tolerated Contact your physician if you experience:: Shortness of breath - Discharge Medications New amLODIPine [Norvasc] 10 mg PO DAILY #30 tablet Continue Norgestimate-Ethinyl Estradiol [Sprintec 28 Day Tablet] 1 each PO DAILY Duloxetine HCl [Duloxetine] 60 mg PO DAILY Magnesium Chloride [Mag Delay] 64 mg PO DAILY Ferrous Sulfate 325 mg PO DAILY Gabapentin 600 capsule PO DAILY Gabapentin 300 capsule PO BEDTIME Carvedilol [Coreg] 6.25 mg PO BID #60 tablet glyBURIDE [Glyburide] 1 tablet PO DAILY Gabapentin Cap/Tab [Neurontin Cap/Tab] 600 capsule PO 1500 - Follow Up or Referral Follow Up: Pankaj Gardner MD [Primary Care Provider] - 1 Month - Forms/Instructions Additional Discharge Instructions: B12 injection to be scheduled for Dr. Gardner' s office for 1 week Exam - Constitutional Vitals: Period Temp Pulse Resp BP Sys/Chase Pulse Ox Last 24 Hr 98.0 F-98.3 F 82-87 16-18 124-190/66-96 96-98 General appearance: no acute distress - Head Head exam: Present: normocephalic, atraumatic - Eye Eye exam: Present: EOMI Pupils: Present: CORA - ENT ENT exam: Present: normal exam - Neck Neck exam: Present: normal inspection - Respiratory Respiratory exam: Present: clear to auscultation bilaterally. Absent: rales, rhonchi, wheezes - Cardiovascular Cardiovascular exam: Present: regular rate and rhythm - GI/Abdominal GI/Abdominal exam: Present: normal bowel sounds, soft. Absent: mass, tenderness , rebound - Extremities Exam Extremities exam: Absent: calf tenderness, edema - Back Exam Back exam: Present: normal inspection - Neurological Exam Neurological exam: Present: alert, oriented X3, CN II-XII intact. Absent: motor sensory deficit - Psychiatric Psychiatric exam: Present: normal affect, normal mood. Absent: agitated, anxious - Skin Skin exam: Present: warm, dry. Absent: rash Discharge Results Labs on day of discharge: Labs from last 24 hours 05/19/17 05/19/17 05/18/17 04:36 04:36 Unknown Hgb 7.9 L Hct 24.2 L Sodium 140 Potassium 4.7 Chloride 110 H Carbon Dioxide 16 L Anion Gap 18.7 H BUN 29 H Creatinine 2.80 H GFR Calculation 17 BUN/Creatinine Ratio 10.00 Glucose 151 H POC Glucose Calculated Osmolality 287.4 Calcium 7.6 L Vitamin B12 174 L 05/18/17 05/18/17 05/18/17 20:29 15:34 11:04 Hgb Hct Sodium Potassium Chloride Carbon Dioxide Anion Gap BUN Creatinine GFR Calculation BUN/Creatinine Ratio Glucose POC Glucose 145 H 185 H 205 H Calculated Osmolality Calcium Vitamin B12 - Imaging and Cardiology Procedure: Chest x-ray: report reviewed by me DS: Provider Date of admission: 05/17/17 01:49 Primary care physician: Pankaj Gardner MD Attending physician on admission: Sulema Crews MD Consults: 05/17/17 01:49 Consult to Physician [CONS] Routine Comment: evi on ckd Consulting Provider: Pankaj Gardner Person Notified: Dr. Gardner Date Notified: 05/17/17 Time Notified: 07:41 Discharging clinician: Sid Lamar Expected date of discharge: 05/19/17
[2017-05-19] MEDS: INSULIN LISPRO 100 UNIT/ML SUBCUT SCH (08:03)
[2017-05-19 08:28] VITALS: BP 136/87
--- NOTE | 2017-05-19 08:37 | Nephrology Progress Note ---
Nephrology - PN: Subj Interval history: Ms. Pozo is seen in follow-up of her chronic renal impairment. Creatinine today is 2.8. B12 level was low at 175 and she has received IM B12. Chest is clear and no edema is noted. Her hematocrit is 24. She will receive a B12 in approximately 1 week in our office and then we will see her in about 1 month with a renal profile and CBC. Should she remain this anemic hematology evaluation. Reasonable but we have documented significant iron deficiency and also this low B12 level. Her renal dysfunction is certainly contributing to her anemia as well. She has not been keeping her follow-up appointments and hopefully she will return as scheduled. She understands the control of her blood sugar and blood pressure other critical issues in preserving kidney function as long as it can be preserved. Exam (PN)-Nephrology - Vital Signs Vital signs: Period Temp Pulse Resp BP Sys/Chase Pulse Ox Last 24 Hr 96.5 F-98.3 F 82-90 16-20 124-190/66-96 96-98 - Lab 05/19/17 04:36 05/19/17 04:36 Most recent lab results Calcium 7.6 MG/DL (8.5-10.1) L 05/19/17 04:36 Magnesium 1.9 MG/DL (1.8-2.4) 05/17/17 04:55 Assessment and Plan (1) Acute on chronic renal failure Status: Acute Assessment and plan: Acute component due to volume depletion. Chronic component due to nephrosclerosis. Continue IV fluid. Current Visit: Yes (2) Mild anemia Status: Acute Assessment and plan: Rechecking iron levels. Current Visit: No (3) Diabetes Status: Chronic Assessment and plan: Sliding scale insulin and continued glyburide. Current Visit: Yes Qualifiers: Diabetes mellitus type: type 2 Diabetes mellitus complication status: with kidney complications Diabetes mellitus complication detail: with chronic kidney disease Diabetes mellitus group home insulin use: without intermodal customer service use Chronic kidney disease stage: stage 3 (moderate) Qualified Code(s): E11.22 - Type 2 diabetes mellitus with diabetic chronic kidney disease; N18.3 - Chronic kidney disease, stage 3 (moderate) (4) Peripheral neuropathy Status: Chronic Assessment and plan: Continue Neurontin Current Visit: Yes Specialty Discharge - Follow Up or Referrals Follow up with: Pankaj Gardner MD [Primary Care Provider] - 1 Month
[2017-05-19] MEDS: CARVEDILOL 6.25 MG TABLET PO SCH (08:57)
[2017-05-19] MEDS: glyBURIDE 5 MG TABLET PO SCH (08:57)
[2017-05-19] MEDS: DULoxetine 30 MG CAPSULE PO SCH (08:57)
[2017-05-19] MEDS: MAGNESIUM CHLORIDE 64 MG TABLET PO SCH (08:57)
[2017-05-19] MEDS: amLODIPine 10 MG TABLET PO SCH (08:58)
[2017-05-19] MEDS: CYANOCOBALAMIN 1000 MCG/1 ML VIAL IM SCH (08:58)
[2017-05-19] MEDS: PANTOPRAZOLE 40 MG TABLET PO SCH (08:58)
[2017-05-19] MEDS ORDERED: FERROUS SULFATE 325 MG TABLET PO SCH (09:00)
[2017-05-19] MEDS ORDERED: GABAPENTIN 300 MG CAPSULE PO SCH (09:00)
[2017-05-19] MEDS: ENOXAPARIN 30 MG/0.3 ML SYRINGE SUBCUT SCH (09:10)
== END 2017-05-19 10:36 | disposition home or self-care (01) | DRG 684 ==
LOC: N.ED 00:02 → SUATTDRO 01:49 → N.EDINP 01:49 → N.4E 03:10
PROVIDERS: ADMIT Family Medicine; ATTEND Hospitalist

== ENCOUNTER 2019-07-25 14:03 | Inpatient (IN) ==
[2019-07-25] MEDS ORDERED: LABETALOL 20 MG/4 ML SYRINGE IV STA ×2 (16:22→17:12)
[2019-07-25 16:59] LABS: Basophils % 0.3 % (0.0-0.8); Eosinophils # 0.2 10*3/uL (0.0-0.87); Eosinophils % 1.7 % (0.00-10.9); Hematocrit 25.1 VOL% (35.7-47.0); Hemoglobin 7.9 GM/DL (12.0-16.0); Immature Granulocytes % 0.6 %; Immature Granulocytes Absolute 0.07 #; Lymphocytes # 1.2 10*3/uL (1.4-4.0); Lymphocytes % 9.9 % (21.3-54.2); Mean Corpuscular HGB Conc 31.5 GM/DL (32-36); Mean Corpuscular Volume 97.7 FL (87-102); Mean Platelet Volume 10.2 FL (9.6-12.0); Neutrophils % 80.5 % (38.7-73.9); Platelet Count 281 T/CUMM (130-400); Red Blood Count 2.57 MC/CUMM (3.8-5.5); Red Cell Distribution Width 13.6 % (9.3-17.3)
[2019-07-25 17:32] LABS: Albumin 3.2 G/DL (3.4-5.0); Bilirubin,Total 0.7 MG/DL (0.2-1.0); Calcium 8.5 MG/DL (8.5-10.1); Osmolality,Calculated 300.7 MOS/KG (273-304); Total Protein 7.8 G/DL (6.4-8.3)
[2019-07-25] MEDS ORDERED: niCARdipine INJ 25 MG in SODIUM CHLORIDE 0.9% 240 ML IV PRN (17:43)
[2019-07-25] MEDS ORDERED: SODIUM CHLORIDE 0.9% 1,000 ML IV STA (17:43)
[2019-07-25] MEDS ORDERED: INSULIN REGULAR 100 UNIT/ML IV STA (17:44)
[2019-07-25] MEDS ORDERED: DEXTROSE 50% 25 GM/50 ML VIAL IV STA (17:44)
[2019-07-25] MEDS ORDERED: CALCIUM GLUCONATE 2,000 MG in SODIUM CHLORIDE 0.9% 100 ML IV ONE (17:45)
[2019-07-25] MEDS ORDERED: SODIUM BICARB INJ 50 MEQ in DEXTROSE 5% 1,000 ML IV SCH (18:00)
[2019-07-25] MEDS ORDERED: DEXTROSE 50% 25 GM/50 ML SYRINGE IV ONE (18:20)
[2019-07-25] MEDS ORDERED: SODIUM BICARBONATE 10 MEQ/10 ML SYRINGE IV ONE (18:20)
[2019-07-25] MEDS ORDERED: DEXTROSE 50% 25 GM/50 ML VIAL IV PRN (19:05)
[2019-07-25] MEDS ORDERED: GLUCAGON 1 MG VIAL IM PRN (19:05)
[2019-07-25] MEDS ORDERED: DOCUSATE SODIUM 100 MG CAPSULE PO PRN (19:05)
[2019-07-25] MEDS ORDERED: ACETAMINOPHEN 325 MG TABLET PO PRN (19:05)
[2019-07-25] MEDS ORDERED: ONDANSETRON 4 MG/2 ML VIAL IV PRN (19:05)
[2019-07-25] MEDS ORDERED: SODIUM POLYSTYRENE SULFATE 15 GM/60 ML BOTTLE PO STA (19:07)
[2019-07-25] MEDS ORDERED: hydrALAZINE 20 MG/1 ML VIAL IV PRN (19:13)
[2019-07-25] MEDS: SODIUM BICARB INJ 50 MEQ in STERILE WATER INJ 1,000 ML IV SCH (20:02)
[2019-07-25] MEDS ORDERED: CARVEDILOL 3.125 MG TABLET PO SCH (21:00)
[2019-07-25] MEDS ORDERED: ENOXAPARIN 30 MG/0.3 ML SYRINGE SUBCUT SCH (21:00)
[2019-07-25] MEDS: hydrALAZINE 25 MG TABLET PO SCH (21:23)
[2019-07-25] MEDS: INSULIN REGULAR 100 UNIT/ML SUBCUT SCH (21:52)
[2019-07-25 23:17] LABS: Apearance,Urine CLEAR (Clear); Bilirubin,Urine Negative (Negative); Blood, Urine Small mg/dL (Negative); Glucose,Urine (UA) 150 mg/dL (Negative); Ketones,Urine Negative (Negative); Mucus,Urine Occasional /LPF (Occasional); Nitrite,Urine Negative (Negative); Protein,Urine 100 MG/DL; RBC,Urine <1 /HPF (0-4); Squamous Epithelial Cell,Urine Occasional /HPF (0-10); Urine Color Colorless (Yellow); Urine Specific Gravity 1.009 (1.001-1.035); Urine Urobilinogen < 2.0 EU/DL (0.2-1.0)
[2019-07-25] MEDS: GABAPENTIN 300 MG CAPSULE PO SCH (23:24)
[2019-07-26 05:33] LABS: Basophils % 0.4 % (0.0-0.8); Eosinophils # 0.1 10*3/uL (0.0-0.87); Eosinophils % 1.8 % (0.00-10.9); Hematocrit 22.4 VOL% (35.7-47.0); Hemoglobin 6.9 GM/DL (12.0-16.0); Immature Granulocytes % 0.4 %; Immature Granulocytes Absolute 0.03 #; Lymphocytes # 1.7 10*3/uL (1.4-4.0); Lymphocytes % 22.6 % (21.3-54.2); Mean Corpuscular HGB Conc 30.8 GM/DL (32-36); Mean Corpuscular Volume 99.1 FL (87-102); Mean Platelet Volume 10.2 FL (9.6-12.0); Monocytes % 8.8 % (1.7-12.7); Platelet Count 231 T/CUMM (130-400); Red Blood Count 2.26 MC/CUMM (3.8-5.5); White Blood Count 7.6 T/CUMM (4-12)
[2019-07-26 06:05] LABS: Parathyroid Hormone Intact 328.4 PG/ML (18.4-80.1)
[2019-07-26 06:06] LABS: % Iron Saturation 14.5 % (18-50); Ferritin 209.6 ng/ml (8-252)
[2019-07-26 06:12] LABS: Calcium 8.2 MG/DL (8.5-10.1); Osmolality,Calculated 300.7 MOS/KG (273-304); Risk Ratio 6.7
[2019-07-26 06:17] LABS: Folate 7.2 NG/ML (5.4-24.0); Vitamin B12 244 PG/ML (211-911)
[2019-07-26 06:42] LABS: Sedimentation Rate-Westergren 108 MM/HR (0-20)
[2019-07-26] MEDS: CARVEDILOL 12.5 MG TABLET PO SCH ×2 (08:39→23:30)
[2019-07-26] MEDS: DULoxetine 30 MG CAPSULE PO SCH (08:39)
[2019-07-26] MEDS: GABAPENTIN 300 MG CAPSULE PO SCH ×2 (08:40→21:56)
[2019-07-26] MEDS: hydrALAZINE 25 MG TABLET PO SCH ×2 (08:40→16:17)
[2019-07-26] MEDS: FERROUS SULFATE 325 MG TABLET PO SCH (08:40)
[2019-07-26] MEDS: INSULIN REGULAR 100 UNIT/ML SUBCUT SCH ×4 (08:41→21:58)
[2019-07-26] MEDS: ASPIRIN EC 81 MG TABLET PO SCH (09:00)
[2019-07-26] MEDS ORDERED: ASPIRIN 325 MG TABLET PO SCH (09:00)
[2019-07-26] MEDS: OMEGA 3 ACID ETHYL ESTERS 1 GM CAPSULE PO SCH ×2 (09:18→21:57)
[2019-07-26] MEDS: CYANOCOBALAMIN 500 MCG TABLET PO SCH (09:18)
[2019-07-26 09:26] LABS: Hemoglobin A1 (Alkaline) 97.3 % (96.5-98.5); Hemoglobin A2 (Alkaline) 2.7 % (1.5-3.5)
[2019-07-26] MEDS ORDERED: IRON SUCROSE 300 MG in SODIUM CHLORIDE 0.9% 100 ML IV ONE (09:41)
[2019-07-26] MEDS: SODIUM BICARB INJ 50 MEQ in STERILE WATER INJ 1,000 ML IV SCH (18:31)
[2019-07-26] MEDS ORDERED: DARBEPOETIN ALFA 40 MCG/ML VIAL SUBCUT ONE (21:00)
[2019-07-26] MEDS ORDERED: INSULIN GLARGINE 100 UNIT/ML SUBCUT SCH (21:00)
[2019-07-26] MEDS: GABAPENTIN 600 MG TABLET PO SCH (21:56)
[2019-07-26] MEDS: ROSUVASTATIN 20 MG TABLET PO SCH (21:56)
[2019-07-26] MEDS: CARVEDILOL 25 MG TABLET PO SCH (21:57)
[2019-07-26] MEDS: HEPARIN 5,000 UNIT/1 ML VIAL SUBCUT SCH (21:58)
[2019-07-27 05:06] LABS: Basophils % 0.3 % (0.0-0.8); Eosinophils # 0.2 10*3/uL (0.0-0.87); Eosinophils % 3.1 % (0.00-10.9); Hematocrit 21.5 VOL% (35.7-47.0); Hemoglobin 6.7 GM/DL (12.0-16.0); Immature Granulocytes % 0.6 %; Immature Granulocytes Absolute 0.04 #; Lymphocytes # 1.8 10*3/uL (1.4-4.0); Lymphocytes % 25.8 % (21.3-54.2); Mean Corpuscular HGB Conc 31.2 GM/DL (32-36); Mean Corpuscular Volume 96.4 FL (87-102); Mean Platelet Volume 10.6 FL (9.6-12.0); Monocytes % 8.4 % (1.7-12.7); Neutrophils % 61.8 % (38.7-73.9); Platelet Count 230 T/CUMM (130-400); Red Blood Count 2.23 MC/CUMM (3.8-5.5); White Blood Count 7.1 T/CUMM (4-12)
[2019-07-27 05:41] LABS: Calcium 7.5 MG/DL (8.5-10.1); Osmolality,Calculated 299.4 MOS/KG (273-304)
[2019-07-27] MEDS: OMEGA 3 ACID ETHYL ESTERS 1 GM CAPSULE PO SCH ×2 (08:49→20:59)
[2019-07-27] MEDS: GABAPENTIN 300 MG CAPSULE PO SCH ×2 (08:49→20:58)
[2019-07-27] MEDS: FERROUS SULFATE 325 MG TABLET PO SCH (08:49)
[2019-07-27] MEDS: CYANOCOBALAMIN 500 MCG TABLET PO SCH (08:49)
[2019-07-27] MEDS: GABAPENTIN 600 MG TABLET PO SCH ×2 (08:50→20:59)
[2019-07-27] MEDS: INSULIN REGULAR 100 UNIT/ML SUBCUT SCH ×4 (08:50→21:00)
[2019-07-27] MEDS: CARVEDILOL 25 MG TABLET PO SCH ×2 (08:50→20:58)
[2019-07-27] MEDS: DULoxetine 30 MG CAPSULE PO SCH (08:50)
[2019-07-27] MEDS: ASPIRIN EC 81 MG TABLET PO SCH (08:50)
[2019-07-27] MEDS: CALCITRIOL 0.25 MCG CAPSULE PO SCH (08:51)
[2019-07-27] MEDS: HEPARIN 5,000 UNIT/1 ML VIAL SUBCUT SCH ×2 (08:53→21:01)
[2019-07-27] MEDS ORDERED: SODIUM CHLORIDE 0.9% 1,000 ML IV PRN (10:10)
[2019-07-27] MEDS ORDERED: CHOLECALCIFEROL 1,000 UNIT TABLET PO ONE (13:34)
[2019-07-27] MEDS: SODIUM BICARB INJ 50 MEQ in STERILE WATER INJ 1,000 ML IV SCH (16:51)
[2019-07-27] MEDS ORDERED: INSULIN GLARGINE 100 UNIT/ML SUBCUT SCH (18:41)
[2019-07-27] MEDS: ROSUVASTATIN 20 MG TABLET PO SCH (20:59)
[2019-07-28 05:44] LABS: Basophils % 0.5 % (0.0-0.8); Eosinophils # 0.2 10*3/uL (0.0-0.87); Eosinophils % 2.9 % (0.00-10.9); Immature Granulocytes % 0.8 %; Immature Granulocytes Absolute 0.06 #; Lymphocytes # 2.3 10*3/uL (1.4-4.0); Lymphocytes % 31.1 % (21.3-54.2); Mean Corpuscular HGB Conc 31.7 GM/DL (32-36); Mean Corpuscular Volume 94.8 FL (87-102); Mean Platelet Volume 10.2 FL (9.6-12.0); Monocytes % 9.8 % (1.7-12.7); Neutrophils % 54.9 % (38.7-73.9); Platelet Count 276 T/CUMM (130-400); Red Cell Distribution Width 14.4 % (9.3-17.3); White Blood Count 7.3 T/CUMM (4-12)
[2019-07-28 05:48] LABS: Hemoglobin 9.2 GM/DL (12.0-16.0); Red Blood Count 3.06 MC/CUMM (3.8-5.5)
[2019-07-28 06:00] LABS: Calcium 7.6 MG/DL (8.5-10.1); Osmolality,Calculated 296.4 MOS/KG (273-304)
[2019-07-28] MEDS ORDERED: INSULIN GLARGINE 100 UNIT/ML SUBCUT SCH (09:06)
[2019-07-28] MEDS: CYANOCOBALAMIN 500 MCG TABLET PO SCH (09:16)
[2019-07-28] MEDS: DULoxetine 30 MG CAPSULE PO SCH (09:16)
[2019-07-28] MEDS: OMEGA 3 ACID ETHYL ESTERS 1 GM CAPSULE PO SCH ×2 (09:16→20:26)
[2019-07-28] MEDS: FERROUS SULFATE 325 MG TABLET PO SCH (09:16)
[2019-07-28] MEDS: ASPIRIN EC 81 MG TABLET PO SCH (09:16)
[2019-07-28] MEDS: CALCITRIOL 0.25 MCG CAPSULE PO SCH (09:16)
[2019-07-28] MEDS: IRON SUCROSE 200 MG in SODIUM CHLORIDE 0.9% 100 ML IV SCH (09:16)
[2019-07-28] MEDS: GABAPENTIN 600 MG TABLET PO SCH ×2 (09:16→20:26)
[2019-07-28] MEDS: GABAPENTIN 300 MG CAPSULE PO SCH ×2 (09:17→20:26)
[2019-07-28] MEDS: INSULIN REGULAR 100 UNIT/ML SUBCUT SCH ×4 (09:17→20:27)
[2019-07-28] MEDS: CARVEDILOL 25 MG TABLET PO SCH ×2 (09:17→17:15)
[2019-07-28] MEDS: HEPARIN 5,000 UNIT/1 ML VIAL SUBCUT SCH ×2 (09:23→20:26)
[2019-07-28] MEDS: SODIUM BICARB INJ 50 MEQ in STERILE WATER INJ 1,000 ML IV SCH (13:30)
[2019-07-28] MEDS: POLYETHYLENE GLYCOL POWDER 17 GM PACK PO SCH (17:15)
[2019-07-28] MEDS: ROSUVASTATIN 20 MG TABLET PO SCH (20:26)
[2019-07-29 05:31] LABS: Basophils % 0.6 % (0.0-0.8); Eosinophils # 0.2 10*3/uL (0.0-0.87); Eosinophils % 2.6 % (0.00-10.9); Hematocrit 25.5 VOL% (35.7-47.0); Hemoglobin 8.5 GM/DL (12.0-16.0); Immature Granulocytes % 0.8 %; Immature Granulocytes Absolute 0.06 #; Lymphocytes # 2.1 10*3/uL (1.4-4.0); Lymphocytes % 28.6 % (21.3-54.2); Mean Corpuscular HGB Conc 33.3 GM/DL (32-36); Mean Corpuscular Volume 96.6 FL (87-102); Mean Platelet Volume 10.7 FL (9.6-12.0); Monocytes % 9.9 % (1.7-12.7); Neutrophils % 57.5 % (38.7-73.9); Platelet Count 220 T/CUMM (130-400); Red Blood Count 2.64 MC/CUMM (3.8-5.5); Red Cell Distribution Width 14.2 % (9.3-17.3); White Blood Count 7.3 T/CUMM (4-12)
[2019-07-29 05:41] LABS: Calcium 6.2 MG/DL (8.5-10.1); Osmolality,Calculated 298.1 MOS/KG (273-304)
[2019-07-29] MEDS ORDERED: CALCIUM CARBONATE CHEW 500 MG TABLET PO SCH (09:00)
[2019-07-29] MEDS: INSULIN REGULAR 100 UNIT/ML SUBCUT SCH ×2 (10:03→12:08)
[2019-07-29] MEDS: DULoxetine 30 MG CAPSULE PO SCH (10:04)
[2019-07-29] MEDS: OMEGA 3 ACID ETHYL ESTERS 1 GM CAPSULE PO SCH (10:04)
[2019-07-29] MEDS: CALCITRIOL 0.25 MCG CAPSULE PO SCH (10:04)
[2019-07-29] MEDS: CARVEDILOL 25 MG TABLET PO SCH (10:04)
[2019-07-29] MEDS: GABAPENTIN 600 MG TABLET PO SCH (10:04)
[2019-07-29] MEDS: ASPIRIN EC 81 MG TABLET PO SCH (10:04)
[2019-07-29] MEDS: IRON SUCROSE 200 MG in SODIUM CHLORIDE 0.9% 100 ML IV SCH (10:05)
[2019-07-29] MEDS: HEPARIN 5,000 UNIT/1 ML VIAL SUBCUT SCH (10:05)
[2019-07-29] MEDS: CYANOCOBALAMIN 500 MCG TABLET PO SCH (10:05)
[2019-07-29] MEDS: POLYETHYLENE GLYCOL POWDER 17 GM PACK PO SCH (11:49)
[2019-07-29 12:10] VITALS: BP 155/81
== END 2019-07-29 14:08 | disposition home or self-care (01) | DRG 683 ==
LOC: N.ED 14:03 → N.EDINP 19:05 → N.5E 19:52
PROVIDERS: ADMIT Hospitalist; ATTEND Hospitalist

== ENCOUNTER 2020-12-04 06:16 | Observation (INO) ==
[2020-12-04] MEDS ORDERED: CLINDAMYCIN INJ 900 MG in PREMIX 1 EACH IV ONE ×2 (06:30→12:44)
[2020-12-04] MEDS ORDERED: DIAZEPAM 5 MG TABLET PO ONE (06:58)
[2020-12-04] MEDS ORDERED: PANTOPRAZOLE 40 MG TABLET PO ONE (06:58)
[2020-12-04] MEDS: SODIUM CHLORIDE 0.9% 250 ML IV SCH ×2 (07:20→18:03)
[2020-12-04 08:24] LABS: Basophils % 0.3 % (0.0-0.8); Eosinophils # 0.1 10*3/uL (0.0-0.87); Eosinophils % 1.4 % (0.00-10.9); Hematocrit 24.3 VOL% (35.7-47.0); Hemoglobin 7.4 GM/DL (12.0-16.0); Immature Granulocytes % 0.9 %; Immature Granulocytes Absolute 0.06 #; Lymphocytes % 13.7 % (21.3-54.2); Mean Corpuscular HGB Conc 30.5 GM/DL (32-36); Mean Corpuscular Volume 97.6 FL (87-102); Mean Platelet Volume 10.3 FL (9.6-12.0); Monocytes % 8.7 % (1.7-12.7); Platelet Count 165 T/CUMM (130-400); Red Blood Count 2.49 MC/CUMM (3.8-5.5); Red Cell Distribution Width 15.4 % (9.3-17.3)
[2020-12-04 08:43] LABS: Osmolality,Calculated 318.4 MOS/KG (273-304)
[2020-12-04] MEDS ORDERED: HEPARIN 5,000 UNIT/1 ML VIAL ONE (08:44)
[2020-12-04] MEDS ORDERED: LIDOCAINE MPF 1% /EPI 30 ML VIAL ONE (08:44)
[2020-12-04] MEDS ORDERED: BUPIVACAINE MPF 0.25% 30 ML VIAL ONE (08:44)
[2020-12-04 09:10] LABS: Calcium 5.7 MG/DL (8.5-10.1)
[2020-12-04] MEDS ORDERED: GLUCAGON 1 MG VIAL IM PRN (11:16)
[2020-12-04] MEDS ORDERED: DEXTROSE 50% 25 GM/50 ML VIAL IV PRN (11:16)
[2020-12-04] MEDS ORDERED: ONDANSETRON 4 MG/2 ML VIAL IV PRN (11:16)
[2020-12-04] MEDS ORDERED: ACETAMINOPHEN 325 MG TABLET PO PRN (11:16)
[2020-12-04] MEDS: INSULIN LISPRO 100 UNIT/ML SUBCUT SCH ×4 (17:15→20:41)
[2020-12-04] MEDS: CALCIUM GLUCONATE 2,000 MG in SODIUM CHLORIDE 0.9% 100 ML IV SCH ×2 (18:03→23:09)
[2020-12-04] MEDS: ENOXAPARIN 30 MG/0.3 ML SYRINGE SUBCUT SCH (20:39)
[2020-12-04] MEDS: carvediloL 12.5 MG TABLET PO SCH (20:40)
[2020-12-04] MEDS: GABAPENTIN 600 MG TABLET PO SCH (20:40)
[2020-12-04] MEDS: hydrALAZINE 25 MG TABLET PO SCH (20:40)
[2020-12-05] MEDS: CALCIUM GLUCONATE 2,000 MG in SODIUM CHLORIDE 0.9% 100 ML IV SCH (05:14)
[2020-12-05 06:06] LABS: Basophils % 0.4 % (0.0-0.8); Eosinophils # 0.1 10*3/uL (0.0-0.87); Hematocrit 26.7 VOL% (35.7-47.0); Hemoglobin 7.9 GM/DL (12.0-16.0); Immature Granulocytes % 0.7 %; Immature Granulocytes Absolute 0.05 #; Lymphocytes # 1.7 10*3/uL (1.4-4.0); Lymphocytes % 24.4 % (21.3-54.2); Mean Corpuscular HGB Conc 29.6 GM/DL (32-36); Mean Platelet Volume 11.1 FL (9.6-12.0); Monocytes % 9.8 % (1.7-12.7); Neutrophils % 62.7 % (38.7-73.9); Platelet Count 181 T/CUMM (130-400); Red Blood Count 2.67 MC/CUMM (3.8-5.5); Red Cell Distribution Width 15.4 % (9.3-17.3)
[2020-12-05 06:28] LABS: % Iron Saturation 19.1 % (18-50)
[2020-12-05 06:30] LABS: Alanine Aminotransferase 18 U/L (13-56); Albumin 2.5 G/DL (3.4-5.0); Alkaline Phosphatase 76 U/L (45-117); Aspartate Amino Transferase < 3 U/L (0-37); Blood Urea Nitrogen 119 MG/DL (7-18); Calcium 6.3 MG/DL (8.5-10.1); Estimated Glom Filtration Rate 3 ML/MIN; Glucose 151 MG/DL (74-106); Total Protein 5.9 G/DL (6.4-8.3)
[2020-12-05] MEDS ORDERED: BUPIVACAINE MPF 0.25% 30 ML VIAL ONE (08:40)
[2020-12-05] MEDS ORDERED: LIDOCAINE MPF 1% /EPI 30 ML VIAL ONE (08:40)
[2020-12-05] MEDS ORDERED: HEPARIN 5,000 UNIT/1 ML VIAL ONE (08:40)
[2020-12-05] MEDS ORDERED: CLINDAMYCIN INJ 900 MG in PREMIX 1 EACH IV ONE (08:45)
[2020-12-05] MEDS: INSULIN LISPRO 100 UNIT/ML SUBCUT SCH ×4 (08:47→21:42)
[2020-12-05] MEDS: hydrALAZINE 25 MG TABLET PO SCH ×2 (08:47→21:42)
[2020-12-05] MEDS: GABAPENTIN 600 MG TABLET PO SCH ×2 (08:48→21:42)
[2020-12-05] MEDS: carvediloL 12.5 MG TABLET PO SCH ×2 (08:48→21:42)
[2020-12-05] MEDS ORDERED: propofoL 200 MG/20 ML VIAL IV ONE (08:53)
[2020-12-05] MEDS ORDERED: fentaNYL 100 MCG/2 ML VIAL ONE (08:53)
[2020-12-05] MEDS ORDERED: LIDOCAINE 2% 5 ML VIAL ONE (08:53)
[2020-12-05] MEDS ORDERED: MIDAZOLAM 2 MG/2 ML VIAL ONE (08:53)
[2020-12-05] MEDS ORDERED: SODIUM CHLORIDE 0.9% 250 ML IV ONE (09:00)
[2020-12-05] MEDS ORDERED: TISSUE ADHESIVE 1 EACH APPLICATOR TOP ONE ×2 (09:37→09:38)
[2020-12-05 09:50] LABS: Hepatitis B Core IgM Quant 0.14 Index; Hepatitis B Surface Ag Quant 0.37 Index; Hepatitis B Surface Ag Result Negative (Negative); Hepatitis C Virus Ab Quant < 0.02 Index; Hepatitis C Virus Ab Result Negative (Negative)
[2020-12-05] MEDS: SODIUM CHLORIDE 0.9% 250 ML IV SCH (12:45)
[2020-12-05] MEDS ORDERED: FERRIC GLUCONATE COMPLEX 125 MG in SODIUM CHLORIDE 0.9% 100 ML IV ONE (14:50)
[2020-12-05] MEDS ORDERED: EPOETIN ALFA-EPBX 2,000 UNIT/ML VIAL IV PRN (14:51)
[2020-12-05] MEDS ORDERED: HEPARIN 10,000 UNIT/10 ML VIAL IV SCH (19:15)
[2020-12-05] MEDS: ENOXAPARIN 30 MG/0.3 ML SYRINGE SUBCUT SCH (21:42)
[2020-12-06 07:47] VITALS: BP 194/85
[2020-12-06] MEDS: SODIUM CHLORIDE 0.9% 250 ML IV SCH (08:15)
[2020-12-06] MEDS: carvediloL 12.5 MG TABLET PO SCH (08:35)
[2020-12-06] MEDS: hydrALAZINE 25 MG TABLET PO SCH (08:35)
[2020-12-06] MEDS: INSULIN LISPRO 100 UNIT/ML SUBCUT SCH (08:35)
[2020-12-06] MEDS: GABAPENTIN 600 MG TABLET PO SCH (08:36)
== END 2020-12-06 11:31 | disposition home or self-care (01) ==
LOC: N.OR 06:16 → N.SDSINP 06:16 → N.3E 15:44 → EDSDCBED 15:44 → N.SDSINP 15:44 → N.OR 12-06 11:31 → UNDODEPSDC 12-07 11:07
PROVIDERS: ADMIT Student in an Organized Health Care Education/Training Program; ATTEND Student in an Organized Health Care Education/Training Program